=== PATIENT | female | born 1955 | race Caucasian/White ===

== ENCOUNTER 2018-11-01 20:21 | Inpatient (IN) ==
--- NOTE | 2018-11-01 22:42 | Emergency Department Note ---
Disposition Clinical Impression: DVT (deep venous thrombosis) Qualifiers: DVT location: non-extremity vein Chronicity: acute Qualified Code(s): I82.90 - Acute embolism and thrombosis of unspecified vein Cellulitis Qualifiers: Site of cellulitis: extremity Site of cellulitis of extremity: lower extremity Laterality: right Qualified Code(s): L03.115 - Cellulitis of right lower limb Disposition: Admitted As Inpatient Condition: Good Referrals: NONE,PCP [Non-Partnered Physician] - Forms: ED Satisfaction Letter General Adult HPI - General Chief complaint: ED Extremity Problem,Nontraumatic Stated complaint: RLE Pain from [place] [facility] Time Seen by Provider: 11/01/18 21:55 Source: patient Mode of arrival: ambulatory Limitations: no limitations Nursing Notes Reviewed: Yes Vital Signs Reviewed: Yes - History of Present Illness HPI Narrative: History patient with a history of atrial fibrillation and previous DVT, currently on request, presenting to the emergency department for swelling in the right lower extremity. Patient's symptoms significantly worse today. Patient has swelling as well as erythema of the posterior calf. Patient has developed a blister to the anterior martin on the right leg. Patient was seen at urgent care and placed on antibiotics as well as had a salve place. Patient also has erythema to the inner buttocks of the left butt cheek. Patient does not have associated fluctuance with this area. Patient was initially evaluated with DVT study while waiting in triage. DVT scan was positive. Patient states she has been taking her Eliquis on a regular basis. Patient has a warfarin allergy. Pharmacy verified the patient has been filling her prescription on a regular basis. Patient has associated concerns for cellulitis post in the right lower leg as well as the left inner gluteal fold. Patient has mild tachycardia. Patient will be further evaluated with evaluation for underlying kidney function. She will be evaluated for right heart strain with BNP and troponin. X-ray and EKG. Patient will likely be anticoagulated on heparin and require admission. Pain Scale: 5 - Related Data Home Medications Medication Instructions Recorded Confirmed Lisinopril [Zestril] 40 mg PO DAILY 04/20/15 11/01/18 Lovastatin [Mevacor] 40 mg PO HS 04/20/15 11/01/18 Metoprolol [Lopressor] 100 mg PO BID 04/20/15 11/01/18 Apixaban [Eliquis] 5 mg PO BID 01/28/18 11/01/18 Allopurinol [Zyloprim] 300 mg PO DAILY 08/09/18 11/01/18 Ergocalciferol (VITAMIN D2) 50,000 unit PO QWEEK 08/09/18 11/01/18 [Vitamin D2] Furosemide [Lasix] 20 mg PO DAILY 08/09/18 11/01/18 Pioglitazone HCl [Actos] 1 tab PO DAILY 08/09/18 11/01/18 Potassium Chloride [Klor-Con 10] 10 meq PO DAILY 08/09/18 11/01/18 hydrOXYzine HCl [Hydroxyzine HCl] 25 mg PO TID PRN 08/09/18 11/01/18 Doxycycline 100 mg PO BID 11/01/18 11/01/18 Previous Rx's Medication Instructions Recorded TraMADol [Ultram] 50 mg PO Q6HR PRN #15 tablet 04/20/15 Amoxicillin/Clavulanate [Augmentin] 875 mg PO BIDWM #10 tablet 08/14/18 Lactobacillus [Culturelle] 1 each PO BID #10 cap.sprink 08/14/18 levoFLOXacin [Levaquin] 750 mg PO DAILY #5 tablet 08/14/18 Doxycycline 100 mg PO BID 10 Days #20 capsule 11/01/18 Mupirocin [Bactroban Oint] 1 appl TP BID 7 Days #1 tube 11/01/18 Allergies Allergy/AdvReac Type Severity Reaction Status Date / Time Warfarin [From Coumadin] Allergy See Verified 11/01/18 20:30 Comments Review of Systems: As Per HPI Constitutional: Denies: fever, chills ENT ED: Denies: congestion Cardiovascular: Denies: chest pain, palpitations Respiratory: Denies: cough, dyspnea Gastrointestinal: Denies: abdominal pain, nausea, vomiting Musculoskeletal: Denies: back pain Integumentary: Reports: rash, lesions Endocrine: Denies: fatigue Past Medical History - Past Medical History Medical history: Reports: atrial fibrillation, diabetes, hyperlipidemia, hypertension Surgical history: Reports: cancer surgery, hysterectomy, other Psychiatric history: Reports: anxiety - Social History Smoking Status: Never smoker Smokeless Tobacco Status: No Alcohol use: Reports: none Drug use: Reports: none Physical Exam General: Well appearing, nontoxic, no acute distress Head: Normocephalic Atraumatic Eyes: PERRL, EOMI ENT: Airway patent, no stridor Neck: supple, no meningismus Chest: Lungs clear to auscultation bilateral Cardiac: Regular rhythm Abdomen: soft, nontender, nondistended; no guarding, rebound, or tenderness to percussion Musculoskeletal: Right calf swollen compared to left. Cap refill symmetric between both legs. Skin: Erythema throughout the right lower extremity involving mostly the calf pulse the anterior martin which has been associated 3 cm x 1 cm blister that has previously ruptured. Patient with 3 cm x 1 cm lesion to the left buttocks just inside gluteal fold. No fluctuance felt. Does not involve the rectum. Neuro: Alert and Oriented to person, place, and time; No obvious focal deficit. - General General appearance: alert, in no apparent distress Course - Reevaluation(s) Reevaluation #1: [facility]all[facility] Watson [facility] 1955 [id number] 11/01/18 22:30 - Vascular Preliminary by Serena Kelly Acct Num: [id number] : 1955 Patient Age: 63 Venous Duplex Right lower extremity venous duplex appears to be positive for acute DVT in the distal SFV. Positive for acute SVT in the GSV. Initialized on 11/01/18 22:30 - END OF NOTE Reevaluation #2: BNP at baseline. No elevated troponin. Patient complaining of chest pain or shortness of breath. Patient will be started on heparin and admitted for further management. Patient was also given Ancef secondary to concern for associated cellulitis. The case was discussed with the hospitalist. Patient accepted for admission. Vital Signs Temperature 99 F 11/01/18 20:26 Pulse Rate 106 11/01/18 20:26 Respiratory Rate 20 11/01/18 20:26 Blood Pressure 128/84 11/01/18 20:26 O2 Sat by Pulse Oximetry 96 11/01/18 20:26 Temperature 99 F 11/01/18 20:26 Pulse Rate 106 11/01/18 20:26 Respiratory Rate 20 11/01/18 20:26 Blood Pressure 128/84 11/01/18 20:26 O2 Sat by Pulse Oximetry 96 11/01/18 20:26 Oxygen Delivery Oxygen Delivery Room Air Medical Decision Making - Lab Data Result diagrams: 11/01/18 22:53 11/01/18 22:53 Lab Results 11/01/18 11/01/18 11/01/18 Range/Units 22:53 22:53 22:53 WBC 12.9 H (4.3-11.1) K/mcL RBC 4.60 (3.82-4.97) M/mcL Hgb 14.0 (11.5-15.4) g/dL Hct 43.7 (35.3-44.9) % MCV 95.0 (83.0-100.0) fL MCH 30.4 (28.0-33.3) pg MCHC 32.0 (31.6-35.5) g/dL RDW 16.2 H (11.5-14.5) % Plt Count 166 (140-400) K/mcL MPV 10.4 (9.4-12.4) fL Immature Gran % 0.5 (0-4) % Seg Neutrophils % 86.8 % Lymphocytes % 7.2 % Monocytes % 5.0 % Eosinophils % 0.1 % Basophils % 0.4 % Neutrophils # 11.2 H (1.6-8.9) K/mcL Lymphocytes # 0.9 (0.6-4.6) K/mcL Monocytes # 0.7 (0.0-1.3) K/mcL Eosinophils # 0.0 (0.0-0.6) K/mcL Basophils # 0.1 (0.0-0.2) K/mcL PT 13.8 H (9.4-12.1) Seconds INR 1.2 APTT 29.3 (26.0-36.0) Seconds Sodium 132 L (136-145) mEq/L Potassium 4.1 (3.5-5.1) mEq/L Chloride 95 L (98-107) mEq/L Carbon Dioxide 28 (23-29) mEq/L BUN 31 H (8-23) mg/dL Creatinine 1.41 H (0.60-1.20) mg/dL Est GFR ( Amer) 45 L (> 60) Est GFR (Non-Af Amer) 37 L (> 60) BUN/Creatinine Ratio 22 (6-26) Glucose 221 H (70-105) mg/dL Calculated Osmolality 287 (280-300) Lactic Acid (0.5-2.2) mmol/L Calcium 9.6 (8.6-10.3) mg/dL Total Bilirubin 1.5 H (0.3-1.0) mg/dL AST 15 (13-39) Units/L ALT 8 (7-52) Units/L Alkaline Phosphatase 58 (34-104) Units/L Troponin I < 0.03 (< 0.04) ng/mL B-Natriuretic Peptide (Less than 100) pg/mL Serum Total Protein 7.3 (6.4-8.9) g/dL Albumin 3.9 (3.5-5.7) g/dL Globulin 3.4 (2.4-3.5) g/dL Albumin/Globulin Ratio 1.1 (1.1-2.2) 11/01/18 11/01/18 Range/Units 22:53 22:53 WBC (4.3-11.1) K/mcL RBC (3.82-4.97) M/mcL Hgb (11.5-15.4) g/dL Hct (35.3-44.9) % MCV (83.0-100.0) fL MCH (28.0-33.3) pg MCHC (31.6-35.5) g/dL RDW (11.5-14.5) % Plt Count (140-400) K/mcL MPV (9.4-12.4) fL Immature Gran % (0-4) % Seg Neutrophils % % Lymphocytes % % Monocytes % % Eosinophils % % Basophils % % Neutrophils # (1.6-8.9) K/mcL Lymphocytes # (0.6-4.6) K/mcL Monocytes # (0.0-1.3) K/mcL Eosinophils # (0.0-0.6) K/mcL Basophils # (0.0-0.2) K/mcL PT (9.4-12.1) Seconds INR APTT (26.0-36.0) Seconds Sodium (136-145) mEq/L Potassium (3.5-5.1) mEq/L Chloride (98-107) mEq/L Carbon Dioxide (23-29) mEq/L BUN (8-23) mg/dL Creatinine (0.60-1.20) mg/dL Est GFR ( Amer) (> 60) Est GFR (Non-Af Amer) (> 60) BUN/Creatinine Ratio (6-26) Glucose (70-105) mg/dL Calculated Osmolality (280-300) Lactic Acid 1.6 (0.5-2.2) mmol/L Calcium (8.6-10.3) mg/dL Total Bilirubin (0.3-1.0) mg/dL AST (13-39) Units/L ALT (7-52) Units/L Alkaline Phosphatase (34-104) Units/L Troponin I (< 0.04) ng/mL B-Natriuretic Peptide 219 H (Less than 100) pg/mL Serum Total Protein (6.4-8.9) g/dL Albumin (3.5-5.7) g/dL Globulin (2.4-3.5) g/dL Albumin/Globulin Ratio (1.1-2.2)
[2018-11-01 23:10] LABS: Basophils # 0.1 K/mcL (0.0-0.2); Basophils % 0.4 %; Eosinophils % 0.1 %; Hematocrit 43.7 % (35.3-44.9); Immature Granulocytes % 0.5 % (0-4); Lymphocytes # 0.9 K/mcL (0.6-4.6); Lymphocytes % 7.2 %; Mean Corpuscular Hemoglobin 30.4 pg (28.0-33.3); Mean Platelet Volume 10.4 fL (9.4-12.4); Monocytes # 0.7 K/mcL (0.0-1.3); Neutrophils # 11.2 K/mcL (1.6-8.9); Platelet Count 166 K/mcL (140-400); Red Cell Distribution Width 16.2 % (11.5-14.5); Segmented Neutrophils % 86.8 %
[2018-11-01 23:17] LABS: INR 1.2; Prothrombin Time 13.8 Seconds (9.4-12.1)
[2018-11-01 23:20] LABS: Activated Partial Thrombo Time 29.3 Seconds (26.0-36.0)
[2018-11-01 23:33] LABS: Alanine Aminotransferase 8 Units/L (7-52); Albumin 3.9 g/dL (3.5-5.7); Albumin/Globulin Ratio 1.1 (1.1-2.2); Alkaline Phosphatase 58 Units/L (34-104); Aspartate Amino Transferase 15 Units/L (13-39); BUN/Creatinine Ratio 22 (6-26); Bilirubin,Total 1.5 mg/dL (0.3-1.0); Blood Urea Nitrogen 31 mg/dL (8-23); Calcium 9.6 mg/dL (8.6-10.3); Carbon Dioxide 28 mEq/L (23-29); Chloride 95 mEq/L (98-107); Globulin 3.4 g/dL (2.4-3.5); Glucose 221 mg/dL (70-105); Osmolality,Calculated 287 (280-300); Potassium 4.1 mEq/L (3.5-5.1); Sodium 132 mEq/L (136-145); Total Protein 7.3 g/dL (6.4-8.9); Troponin I < 0.03 ng/mL (< 0.04); eGFR For Non-African Americans 37 (> 60)
[2018-11-01] MEDS ORDERED: *HR* Heparin 5,000 UNIT/ML VIAL IVP PRN ×2 (23:52)
[2018-11-01] MEDS ORDERED: *HR* Heparin 5,000 UNIT/ML VIAL IVP ONE (23:52)
[2018-11-01] MEDS ORDERED: ceFAZolin 1,000 MG in Water for inj. (sterile) 20 ML 10 ML IVP STA (23:53)
[2018-11-02] MEDS ORDERED: *HR* OxyCODONE Immed Rel 5 MG TABLET PO STA (02:06)
[2018-11-02] MEDS ORDERED: hydrOXYzine pamoate 25 MG CAPSULE PO PRN (02:15)
[2018-11-02] MEDS ORDERED: *HR* Dextrose 50 % in Water (Syg) 50 ML SYRINGE IVP PRN (02:16)
[2018-11-02] MEDS ORDERED: Dextrose Gel 15 GM/37.5 ML TUBE PO PRN ×2 (02:16)
[2018-11-02] MEDS ORDERED: Naloxone 0.4 MG/ML INJ IVP PRN (02:16)
[2018-11-02] MEDS ORDERED: Insulin DETEMIR 100 UNIT/ML X5UNITS SQ ONE (02:16)
[2018-11-02] MEDS ORDERED: 0.9 % Sodium Chloride 1,000 ML IVC ONE (02:18)
--- NOTE | 2018-11-02 02:39 | Internal Med History&Physical ---
Date of Encounter: 11/02/18 Time of Encounter: 02:37 Internal Medicine - H&P: HPI Chief complaint: leg pain Admitted From: Home Plans for Post Hospital Care: Home History of present illness: Kallie Watson is a morbidly obese 63 year old woman with diabetes, atrial fibrillation and DVT previously on warfarin then dabigatran and now on apixaban. She comes to the ER complaining of pain and swelling in her right leg for the past 2 days and worsening. She also developed a blister on her martin and was placed on antibiotics at urgent care. Her inflammatory signs progressed on the calf area and today in the ER was found to have an acute DVT in the distal SFV and GSV. She is admitted for further care. Past Med Surg Social Fam HX - Past Medical History Medical history: atrial fibrillation, diabetes, hyperlipidemia, hypertension Additional medical history: DVTs Psychiatric history: anxiety - Past Surgical History Surgical History: cancer surgery, hysterectomy, other Additional surgical history: afib ablasion. varicose veins. right breast lump. d&c x 2. tubal - Social History Smoking Status: Never smoker Smokeless Tobacco Status: No Alcohol use: none Drug use: none Internal Medicine - H&P: Meds Lisinopril [Zestril] 40 mg PO DAILY 04/20/15 [History] Lovastatin [Mevacor] 40 mg PO HS 04/20/15 [History] Metoprolol [Lopressor] 100 mg PO BID 04/20/15 [History] TraMADol [Ultram] 50 mg PO Q6HR PRN #15 tablet 04/20/15 [Rx] Apixaban [Eliquis] 5 mg PO BID 01/28/18 [History] Allopurinol [Zyloprim] 300 mg PO DAILY 08/09/18 [History] Ergocalciferol (VITAMIN D2) [Vitamin D2] 50,000 unit PO QWEEK 08/09/18 [History] Furosemide [Lasix] 20 mg PO DAILY 08/09/18 [History] Pioglitazone HCl [Actos] 1 tab PO DAILY 08/09/18 [History] Potassium Chloride [Klor-Con 10] 10 meq PO DAILY 08/09/18 [History] hydrOXYzine HCl [Hydroxyzine HCl] 25 mg PO TID PRN 08/09/18 [History] Amoxicillin/Clavulanate [Augmentin] 875 mg PO BIDWM #10 tablet 08/14/18 [Rx] Lactobacillus [Culturelle] 1 each PO BID #10 cap.sprink 08/14/18 [Rx] levoFLOXacin [Levaquin] 750 mg PO DAILY #5 tablet 08/14/18 [Rx] Doxycycline 100 mg PO BID 11/01/18 [History] Doxycycline 100 mg PO BID 10 Days #20 capsule 11/01/18 [Rx] Mupirocin [Bactroban Oint] 1 appl TP BID 7 Days #1 tube 11/01/18 [Rx] Allergy/AdvReac Type Severity Reaction Status Date / Time Warfarin [From Coumadin] Allergy See Verified 11/01/18 20:30 Comments All Systems PM: A 10-system review of systems was performed and is negative for pertinent findings except as documented above in the HPI. Family history reviewed and found non-contributory. - Constitutional Vitals: Temp Pulse Resp BP Pulse Ox 99 F 106 18 146/85 96 11/01/18 20:26 11/01/18 20:26 11/02/18 02:28 11/02/18 02:28 11/01/18 20:26 Exam: Vitals: Reviewed General: Morbidly obese, unkempt and odorous. Skin: Warm, dry HEENT: Moist mucous membranes. No conjunctivae pallor. Neck: Short and thick. Chest: Normal breath sounds. Clear to auscultation. Heart: Normal S1 & S2; rhythmic. No rubs or murmurs. Abdomen: soft and non-tender to palpation. No peritoneal reaction. Extremities: Equally edematous legs but with the right leg showing more acute inflammatory signs with posterior erythema and warmth that is exquisitely tender to palpation as well as anterior blister formation that is covered with dry dressing. Neurological: Awake, alert and oriented to person, place and time. No focal deficits. Psych: Affect appropriate. Internal Med - H&P Results - Labs CBC & Chem 7: 11/01/18 22:53 11/01/18 22:53 Labs: Short CBC 11/01/18 Range/Units 22:53 WBC 12.9 H (4.3-11.1) K/mcL Hgb 14.0 (11.5-15.4) g/dL Hct 43.7 (35.3-44.9) % Plt Count 166 (140-400) K/mcL Neutrophils # 11.2 H (1.6-8.9) K/mcL BMP 11/01/18 22:53 Sodium 132 L Potassium 4.1 Chloride 95 L Carbon Dioxide 28 BUN 31 H Creatinine 1.41 H Glucose 221 H Calcium 9.6 Cardiac Enzymes 11/01/18 Range/Units 22:53 Troponin I < 0.03 (< 0.04) ng/mL Liver Function 11/01/18 Range/Units 22:53 Total Bilirubin 1.5 H (0.3-1.0) mg/dL AST 15 (13-39) Units/L ALT 8 (7-52) Units/L Alkaline Phosphatase 58 (34-104) Units/L Albumin 3.9 (3.5-5.7) g/dL - Impressions ITS Impressions Chest X-Ray 11/01/18 22:37 IMPRESSION: No acute process. D/ / Maximo Wren MD / Maximo Wren MD Interpreting Provider: Maximo Wren MD - Assessment and Plan (1) DVT (deep venous thrombosis) Current Visit: Yes Status: Acute Assessment and plan: Per her recount, she has suffered multiple episodes of DVT and her switch from different anticoagulants appears to stem from this. It could be considered that given her weight she may be underdosed pharmacokinetically. However her Factor Xa is actually greater than therapeutic so this should not be the cause. We will place her on IV heparin when we repeat her level to ensure they are within the therapeutic range and thereby not risk hemorrhage. She will benefit from hematology consultation for ongoing recommendations upon discharge. Qualifiers: DVT location: non-extremity vein Chronicity: acute Qualified Code(s): I82.90 - Acute embolism and thrombosis of unspecified vein (2) Cellulitis Current Visit: Yes Status: Acute Assessment and plan: It appears that the patient may have developed a secondary cellulitic process ov er her underlying DVT which can be seen in some cases, frequntly in someone like herself who is diabetic and extremely adipose. Will request leg elevation and start vancomycin as blood cultures have been obtained. Cold packs may be applied for comfort and analgesics as needed. Qualifiers: Site of cellulitis: extremity Site of cellulitis of extremity: lower extremity Laterality: right Qualified Code(s): L03.115 - Cellulitis of right lower limb (3) Diabetes mellitus Current Visit: Yes Status: Acute Assessment and plan: Will administer basal insulin tonight and continue with sliding scale regimen while her oral agents will be on hold. Qualifiers: Diabetes mellitus type: type 2 Diabetes mellitus intermediate insulin use: without intermediate use Diabetes mellitus complication status: with unspecified complications Qualified Code(s): E11.8 - Type 2 diabetes mellitus with u nspecified complications (4) Atrial fibrillation Current Visit: Yes Status: Chronic Assessment and plan: Monitor on telemetry. Continue metoprolol. Anticoagulation as above. Qualifiers: Atrial fibrillation type: chronic Qualified Code(s): I48.2 - Chronic atrial fibrillation (5) CKD (chronic kidney disease) stage 3, GFR 30-59 ml/min Current Visit: Yes Status: Chronic Assessment and plan: Stable. Avoid nephrotoxic agents. (6) Gout Current Visit: Yes Status: Chronic Assessment and plan: Asymptomatic. Continue allopurinol. Qualifiers: Gout site: unspecified site Gout etiology: unspecified cause Chronicity: unspecified Qualified Code(s): M10.9 - Gout, unspecified (7) Hypertension Current Visit: Yes Status: Chronic Assessment and plan: Resume oral antihypertensives once reconciled. Qualifiers: Hypertension type: essential hypertension Qualified Code(s): I10 - Essential (primary) hypertension (8) Obesity Current Visit: Yes Status: Acute Assessment and plan: Counseled and educated on therapeutic lifestyle changes for weight loss as it will be of benefit in controlling comorbidities. Power Originator evaluation advised. She will need bariatric evaluation at this point. Qualifiers: Obesity type: due to excess calories Obesity classification: adult class 3 (BMI >= 40) Serious obesity comorbidity presence: with serious comorbidity Body mass index: BMI 50.0-59.9 Qualified Code(s): E66.01 - Morbid (severe) o besity due to excess calories; Z68.43 - Body mass index (BMI) 50-59.9, adult - Time Spent With Patient Total time spent is greater than 50% in coordination of care (as documented) at patient's floor/unit and/or counseling patient: Greater than 35 minutes
[2018-11-02] MEDS: Heparin 25,000 UNIT/250 ML D5W 25,000 UNIT/250 ML IV.SOLN IVC SCH ×2 (07:07→17:22)
[2018-11-02] MEDS: *HR* OxyCODONE Immed Rel 5 MG TABLET PO PRN ×2 (08:05→14:15)
[2018-11-02] MEDS: Metoprolol 100 MG TABLET PO SCH ×2 (08:06→20:11)
[2018-11-02] MEDS: Lisinopril 20 MG TABLET PO SCH (08:06)
[2018-11-02] MEDS: Insulin LISPRO 300 UNITS/3 ML VIAL SQ SCH ×4 (08:09→22:41)
--- NOTE | 2018-11-02 08:41 | Event Note ---
Date of Encounter: 11/02/18 Time of Encounter: 08:24 Patient seen and examined by hospitalist services earlier this am. Currently patient does complain of lower leg pain however controlled with pain medications. She is requesting to eat breakfast. Discussed treatment plan including consulting hematology- physical exam verbalized understanding Physical exam Skin: Free of rash lower extremities are edematous and dusky in color Eyes: Sclera is white. There is no discharge from eyes. ENMT: Oral/pharyngeal mucosa is normal in appearance. There is no discharge from nose or ears. Respiratory: Normal breath sounds with no crackles and wheezes bilaterally. CV: Heart is irregular with no gallop or murmur. GI: Abdomen is flat and soft with no palpable mass or visceromegaly. : There is no tenderness in patient's flanks bilaterally. Neuro exam: He has good strength in upper and lower extremities. He has normal eye movements. Psychiatric: He has normal affect. His thought process is appropriate to the situation.
[2018-11-02] MEDS ORDERED: *HR* Heparin 5,000 UNIT/ML VIAL IVP PRN ×2 (10:58)
[2018-11-02] MEDS ORDERED: Heparin 25,000 UNIT/250 ML D5W 25,000 UNIT/250 ML IV.SOLN IVC SCH ×2 (13:00→13:30)
[2018-11-02] MEDS: Acetaminophen 325 MG TABLET PO PRN (19:59)
[2018-11-02 20:24] LABS: Hematocrit 38.8 % (35.3-44.9); Hemoglobin 12.8 g/dL (11.5-15.4); Mean Corpuscular Hemoglobin 30.6 pg (28.0-33.3); Mean Corpuscular Volume 92.8 fL (83.0-100.0); Mean Platelet Volume 10.4 fL (9.4-12.4); Platelet Count 153 K/mcL (140-400); Red Blood Count 4.18 M/mcL (3.82-4.97); Red Cell Distribution Width 16.5 % (11.5-14.5)
[2018-11-02 20:44] LABS: Calcium 9.1 mg/dL (8.6-10.3); Potassium 4.3 mEq/L (3.5-5.1)
[2018-11-03] MEDS: Heparin 25,000 UNIT/250 ML D5W 25,000 UNIT/250 ML IV.SOLN IVC SCH ×2 (00:37→14:09)
[2018-11-03 03:14] LABS: Basophils % 0.2 %; Hematocrit 39.2 % (35.3-44.9); Hemoglobin 12.2 g/dL (11.5-15.4); Immature Granulocytes % 0.6 % (0-4); Lymphocytes # 1.2 K/mcL (0.6-4.6); Mean Corpuscular HGB Conc 31.1 g/dL (31.6-35.5); Mean Corpuscular Hemoglobin 30.1 pg (28.0-33.3); Mean Corpuscular Volume 96.8 fL (83.0-100.0); Mean Platelet Volume 10.7 fL (9.4-12.4); Monocytes # 0.8 K/mcL (0.0-1.3); Monocytes % 5.1 %; Neutrophils # 13.3 K/mcL (1.6-8.9); Platelet Count 146 K/mcL (140-400); Red Blood Count 4.05 M/mcL (3.82-4.97); Red Cell Distribution Width 16.2 % (11.5-14.5); Segmented Neutrophils % 86.1 %
[2018-11-03 03:20] LABS: Calcium 9.4 mg/dL (8.6-10.3); Potassium 3.8 mEq/L (3.5-5.1)
[2018-11-03 03:36] LABS: Activated Partial Thrombo Time 128.1 Seconds (26.0-36.0)
[2018-11-03 03:46] LABS: Heparin anti-factor XA UFH 1.28 IU/mL (0.30-0.70)
--- NOTE | 2018-11-03 06:54 | Event Note ---
Date of Encounter: 11/02/18 Time of Encounter: 19:47 Alerted by pts. nurse ANA LUISA Oliveros that the pts. HR was increasing to 120s and 130s and sustaining. Pt. has hx of Afib. Pt. meeting sepsis criteria so lactic acid ordered as well. EKG showed Afib w/RVR. Nurse instructed to get 2nd IV access d/t pt. being on heparin gtt. 2nd IV access gained and Cardizem gtt ordered to start at 2.5 mg and titrate up per protocol while monitoring pts. BP closely. Pts. BP 100/50 manually. VS at 23:03: 98.3F temp, HR 1:15, RR 18, BP 117/73, SPO2 99% on 2 L. Gtt started and pts. nurse instructed to continue monitoring pt. very closely and alert me immediately of any adverse changes.
[2018-11-03] MEDS: Insulin LISPRO 300 UNITS/3 ML VIAL SQ SCH ×4 (07:38→20:19)
[2018-11-03] MEDS: Metoprolol 100 MG TABLET PO SCH ×2 (08:21→20:24)
[2018-11-03] MEDS: Lisinopril 20 MG TABLET PO SCH (08:21)
[2018-11-03] MEDS: traMADol 50 MG TABLET PO PRN (08:21)
[2018-11-03] MEDS ORDERED: Furosemide 20 MG TABLET PO SCH (09:00)
--- NOTE | 2018-11-03 10:06 | Internal Med Progress Note ---
Hospitalist Progress Note - Encounter Date of Encounter: 11/03/18 Time of Encounter: 10:00 - Subjective Interval History: Patient was seen and examined at bedside. Currently states she feels much better leg is less painful. She did have an episode of A. fib RVR overnight which I did review with the patient currently on Cardizem at 10 rate is improving. Also on heparin which we will continue due to DVT. Discussed treatment plan with the patient who verbalized understanding - Exam Vitals: Temp Pulse Resp BP Pulse Ox 100.3 F H 132 18 121/78 95 11/03/18 07:34 11/03/18 07:34 11/03/18 07:34 11/03/18 07:34 11/03/18 08:20 Exam: Vitals: Reviewed General: Morbidly obese, unkempt and odorous. Skin: Warm, dry HEENT: Moist mucous membranes. No conjunctivae pallor. Neck: Short and thick. Chest: Normal breath sounds. Clear to auscultation. Heart: Normal S1 & S2; rhythmic. No rubs or murmurs. Abdomen: soft and non-tender to palpation. No peritoneal reaction. Extremities: Equally edematous legs but with the right leg showing more acute inflammatory signs with posterior erythema and warmth that is exquisitely tender to palpation as well as anterior blister formation that is covered with some serous sanguinous drainage Neurological: Awake, alert and oriented to person, place and time. No focal deficits. Psych: Affect appropriate. - Assessment and Plan (1) Gout Current Visit: Yes Status: Chronic Assessment and Plan: Asymptomatic. Continue allopurinol. (2) CKD (chronic kidney disease) stage 3, GFR 30-59 ml/min Current Visit: Yes Status: Chronic Assessment and Plan: Stable. Avoid nephrotoxic agents. Monitor creatinine closely (3) Atrial fibrillation Current Visit: Yes Status: Chronic Assessment and Plan: Monitor on telemetry. Continue metoprolol. Anticoagulation as above. Patient did have episode of A. fib RVR overnight initiated on Cardizem drip-rate currently around 100 (4) Hypertension Current Visit: Yes Status: Chronic Assessment and Plan: Continued home medications-currently patient is on Cardizem drip monitor blood pressure closely (5) Diabetes mellitus Current Visit: Yes Status: Acute Assessment and Plan: Will administer basal insulin and continue with sliding scale regimen while her oral agents will be on hold.-Glucose is stable at this time (6) DVT (deep venous thrombosis) Current Visit: Yes Status: Acute Assessment and Plan: Patient is morbidly obese has had multiple episodes of DVTs and been placed on 3 different anticoagulants. Currently venous duplex does show right superficial femoral vein acute thrombus right great saphenous vein acute thrombus-right leg is edematous with erythema and tenderness to touch. She has been initiated on heparin drip hematology has been consulted for ongoing recommendations upon discharge (7) Cellulitis Current Visit: Yes Status: Acute Assessment and Plan: Right lower leg continues to be edematous with erythema tender to touch. She does have one open wound which is draining. She did have a fever overnight blood cultures are negative to date. White count is stable at this time co ntinue with vancomycin-we will attempt to obtain wound culture Encourage patient to elevate leg cold packs as needed continue with current analgesia (8) Obesity Current Visit: Yes Status: Acute Assessment and Plan: Counseled and educated on therapeutic lifestyle changes for weight loss as it will be of benefit in controlling comorbidities. She will need bariatric evaluation at this point. (9) Atrial fibrillation with RVR Current Visit: Yes Status: Acute Assessment and Plan: Patient had an episode of A. fib RVR overnight with heart rates of 140s 150s. Patient on Cardizem drip which we will continue currently rate 100. Continue with metoprolol Currently on heparin drip which we will continue - Time Spent with Patient Total time spent is greater than 50% in coordination of care (as documented) at patient's floor/unit and/or counseling patient: Internal Medicine: Result - Labs CBC & Chem 7: 11/03/18 02:43 11/03/18 02:43 Labs: Short CBC 11/02/18 11/03/18 Range/Units 20:12 02:43 WBC 16.4 H 15.4 H (4.3-11.1) K/mcL Hgb 12.8 12.2 (11.5-15.4) g/dL Hct 38.8 39.2 (35.3-44.9) % Plt Count 153 146 (140-400) K/mcL Neutrophils # 13.3 H (1.6-8.9) K/mcL BMP 11/02/18 11/03/18 20:12 02:43 Sodium 128 L 130 L Potassium 4.3 3.8 Chloride 93 L 95 L Carbon Dioxide 25 25 BUN 29 H 29 H Creatinine 1.49 H 1.44 H Glucose 221 H 182 H Calcium 9.1 9.4 - ABG Interpretation ABG results: PT/INR, D-dimer PT 13.8 Seconds (9.4-12.1) H 11/01/18 22:53 Consult Discharge Plan - Plan Referrals: Rachel Veronica MD [Primary Care Provider] - (Follow up has been requested) (1) Gout Qualifiers: Gout site: unspecified site Gout etiology: unspecified cause Chronicity: unspecified Qualified Code(s): M10.9 - Gout, unspecified (3) Atrial fibrillation Qualifiers: Atrial fibrillation type: chronic Qualified Code(s): I48.2 - Chronic atrial fibrillation (4) Hypertension Qualifiers: Hypertension type: essential hypertension Qualified Code(s): I10 - Essential (primary) hypertension (5) Diabetes mellitus Qualifiers: Diabetes mellitus type: type 2 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 terminal operator insulin use: without computer terminal operator use Diabetes mellitus complication status: with unspecified complications Qualified Code(s): E11.8 - Type 2 diabetes mellitus with unspecified complications (6) DVT (deep venous thrombosis) Qualifiers: DVT location: non-extremity vein Chronicity: acute Qualified Code(s): I82.90 - Acute embolism and thrombosis of unspecified vein (7) Cellulitis Qualifiers: Site of cellulitis: extremity Site of cellulitis of extremity: lower extremity Laterality: right Qualified Code(s): L03.115 - Cellulitis of right lower limb (8) Obesity Qualifiers: Obesity type: due to excess calories Obesity classification: adult class 3 (BMI >= 40) Serious obesity comorbidity presence: with serious comorbidity Body mass index: BMI 50.0-59.9 Qualified Code(s): E66.01 - Morbid (severe) obesity due to excess calories; Z68.43 - Body mass index (BMI) 50-59.9, adult
[2018-11-03] MEDS ORDERED: Vancomycin 1 EACH in 0.9 % Sodium Chloride 250 ML IVPB SCH (14:15)
--- NOTE | 2018-11-03 18:37 | Oncology Inp Consult Note ---
Date of Encounter: 11/03/18 Time of Encounter: 18:36 Assessment and Plan (1) DVT (deep venous thrombosis) Status: Acute Assessment and plan: Acute right lower extremity DVT diagnosed by Doppler 11/01/2018. She was on Elequis 5 mg twice a day minute happen Her risk factors for DVT include medically significant obesity. She was tolerating Pradaxa for about 6 years in the past without much problems. She did not fail Pradaxa Had a long discussion with her. She does not like Coumadin if it causes her bleeding. At this time we will switch her back to Pradaxa 150 mg by mouth twice a day after about 5 days of heparin. If her creatinine clearance anthony to drop below 30 may have to dose reduce Medically significant obesity which is also contributing to DVT. Weight reduction would help Type 2 diabetes mellitus needs better control. 2. Chronic atrial fibrillation. Pradaxa should be helpful for this as well Qualifiers: DVT location: non-extremity vein Chronicity: acute Qualified Code(s): I82.90 - Acute embolism and thrombosis of unspecified vein - Data of Consult Patient: new to practice Requesting Physician: Enrike Alcantar MD Primary Care Provider: Rachel Veronica - Consult Narrative Reason for consult: Acute right lower extremity DVT History of present illness: Hospitalized with right leg swelling and pain for 2 days prior to admission. Venous Doppler 11/01/2018 showed acute right superficial femoral vein DVT. Also right greatest saphenous vein SVT noted. Left side Doppler unremarkable She also has history of atrial fibrillation She was on warfarin diabetes In the past and Failed. She Was on Apixaban Prior to This Admission Since Admission She Is on Heparin and Her Symptoms Have Improved Greatly Her Risk Factors for DVT Include Medically Significant Obesity with BMI 58 She has chronic kidney disease stage III creatinine around 1.4 with creatinine clearance around 40. Hematological history She had history of DVT for several years She was on Coumadin for few years. Subsequently she developed uterine bleeding. She has to have a hysterectomy in 2010 and is diagnosed to have a uterine cancer Since then she was switched to Pradaxa 150 mg by mouth twice a day which she was tolerating it well. Around September 2016 she was switched to Eliquis 5 mg twice a day as it may be a better drug She claims she has been taking Eliquis regularly up until this admission. Past Med Surg Social Fam HX - Past Medical History Medical history: atrial fibrillation, diabetes, hyperlipidemia, hypertension Additional medical history: DVTs Psychiatric history: anxiety - Past Surgical History Surgical History: cancer surgery, hysterectomy, other Additional surgical history: afib ablasion. varicose veins. right breast lump. d&c x 2. tubal - Social History Smoking Status: Never smoker Smokeless Tobacco Status: No Alcohol use: none Drug use: none - Family History Father Hx Family Cardiac Disorders: Yes (heart disease) Hx Family Cancer: Yes Mother Hx Family Cardiac Disorders: Yes (PACEMAKER) Hx Family Cancer: Yes (throat) Medications and Allergies RX: Lisinopril [Zestril] 40 mg PO DAILY 04/20/15 [History] RX: Lovastatin [Mevacor] 40 mg PO HS 04/20/15 [History] RX: Metoprolol [Lopressor] 100 mg PO BID 04/20/15 [History] RX: TraMADol [Ultram] 50 mg PO Q6HR PRN #15 tablet 04/20/15 [Rx] RX: Apixaban [Eliquis] 5 mg PO BID 01/28/18 [History] RX: Allopurinol [Zyloprim] 300 mg PO DAILY 08/09/18 [History] RX: Ergocalciferol (VITAMIN D2) [Vitamin D2] 50,000 unit PO QWEEK 08/09/18 [ History] RX: Furosemide [Lasix] 20 mg PO DAILY 08/09/18 [History] RX: Pioglitazone HCl [Actos] 1 tab PO DAILY 08/09/18 [History] RX: Potassium Chloride [Klor-Con 10] 10 meq PO DAILY 08/09/18 [History] RX: hydrOXYzine HCl [Hydroxyzine HCl] 25 mg PO TID PRN 08/09/18 [History] Amoxicillin/Clavulanate [Augmentin] 875 mg PO BIDWM #10 tablet 08/14/18 [Rx] RX: Lactobacillus [Culturelle] 1 each PO BID #10 cap.sprink 08/14/18 [Rx] levoFLOXacin [Levaquin] 750 mg PO DAILY #5 tablet 08/14/18 [Rx] RX: Doxycycline 100 mg PO BID 11/01/18 [History] RX: Doxycycline 100 mg PO BID 10 Days #20 capsule 11/01/18 [Rx] RX: Mupirocin [Bactroban Oint] 1 appl TP BID 7 Days #1 tube 11/01/18 [Rx] Allergy/AdvReac Type Severity Reaction Status Date / Time Warfarin [From Coumadin] Allergy See Verified 11/01/18 20:30 Comments Review of systems: Activity level is limited. No nausea vomiting. No chest pain. Shortness of breath with exertion. Has significant ecchymosis especially right forearm probably from peripheral vein access. No headache. No focal neurological deficit but deconditioning. No visual problems. Right leg pain has improved Oncology - Exam - Constitutional Exam: GENERAL: Alert and oriented, fatigued. Medically significant obesity Mental Status: Affect appropriate for circumstances HEENT: Sclerae anicteric. No mucositis or thrush. No other oral or pharyngeal lesions or erythema. Skin: No rashes or petechiae. No evidence of skin malignancy Lymph nodes: No cervical, supraclavicular, axillary, or inguinal adenopathy. Lungs: Air entry normal with normal breath sounds. No rhonchi or wheezing Cardiovascular: Regular rate and rhythm. No skipped beats Abdomen: Soft, nontender; no organomegaly or masses palpable. Extremities: Bilateral lower extremity edema some of them are chronic about 1- 2+ Neurologic: Alert, cranial nerves II-XII intact; she has generalized deconditioning Consult Discharge Plan - Plan Referrals: Rachel Veronica MD [Primary Care Provider] - (Follow up has been requested) Inpatient Charges Provider: Dr. Brenda Graff Consult - Inpatient: [id number]
[2018-11-03] MEDS: Acetaminophen 325 MG TABLET PO PRN (20:19)
[2018-11-04 01:36] LABS: Basophils % 0.3 %; Eosinophils # 0.1 K/mcL (0.0-0.6); Hematocrit 34.1 % (35.3-44.9); Hemoglobin 11.2 g/dL (11.5-15.4); Immature Granulocytes % 0.8 % (0-4); Lymphocytes # 1.6 K/mcL (0.6-4.6); Lymphocytes % 12.6 %; Mean Corpuscular HGB Conc 32.8 g/dL (31.6-35.5); Mean Corpuscular Hemoglobin 30.3 pg (28.0-33.3); Mean Corpuscular Volume 92.2 fL (83.0-100.0); Mean Platelet Volume 10.9 fL (9.4-12.4); Monocytes # 0.9 K/mcL (0.0-1.3); Monocytes % 7.2 %; Neutrophils # 9.7 K/mcL (1.6-8.9); Platelet Count 140 K/mcL (140-400); Red Cell Distribution Width 16.4 % (11.5-14.5); Segmented Neutrophils % 78.1 %
[2018-11-04 01:52] LABS: Calcium 8.7 mg/dL (8.6-10.3); Potassium 3.8 mEq/L (3.5-5.1)
[2018-11-04] MEDS: Heparin 25,000 UNIT/250 ML D5W 25,000 UNIT/250 ML IV.SOLN IVC SCH ×3 (03:40→20:44)
[2018-11-04] MEDS ORDERED: Aminoglycoside Consult 1 EACH MC ONE (07:28)
--- NOTE | 2018-11-04 09:05 | Internal Med Progress Note ---
Hospitalist Progress Note - Encounter Date of Encounter: 11/04/18 Time of Encounter: 09:04 - Subjective Interval History: patient seen and examined SHe plans of lower leg pain-right leg is red and edematous - Exam Vitals: Temp Pulse Resp BP Pulse Ox 99.5 F 110 17 113/67 96 11/04/18 06:42 11/04/18 06:42 11/04/18 06:42 11/04/18 06:42 11/04/18 06:42 Exam: Vitals: Reviewed General: Morbidly obese, unkempt and odorous. Skin: Warm, dry HEENT: Moist mucous membranes. No conjunctivae pallor. Neck: Short and thick. Chest: Normal breath sounds. Clear to auscultation. Heart: Normal S1 & S2; rhythmic. No rubs or murmurs. Abdomen: soft and non-tender to palpation. No peritoneal reaction. Extremities: Equally edematous legs but with the right leg showing more acute inflammatory signs with posterior erythema and warmth that is exquisitely tender to palpation as well as anterior blister formation that is covered with some serous sanguinous drainage Neurological: Awake, alert and oriented to person, place and time. No focal deficits. Psych: Affect appropriate. - Assessment and Plan (1) Gout Current Visit: Yes Status: Chronic Assessment and Plan: Asymptomatic. Continue allopurinol. (2) CKD (chronic kidney disease) stage 3, GFR 30-59 ml/min Current Visit: Yes Status: Chronic Assessment and Plan: Stable. Avoid nephrotoxic agents. Monitor creatinine closely (3) Atrial fibrillation Current Visit: Yes Status: Chronic Assessment and Plan: Monitor on telemetry. Continue metoprolol. Anticoagulation as above. -Initiated on oral Cardizem Cardiology consult and appreciate recommendations Continue anticoagulation Cardiac echo has been ordered (4) Hypertension Current Visit: Yes Status: Chronic Assessment and Plan: Lopressor is a little soft we will hold lisinopril patient initiated on oral C ardizem-Cardizem drip has been discontinue continue with metoprolol (5) Diabetes mellitus Current Visit: Yes Status: Acute Assessment and Plan: Will administer basal insulin and continue with sliding scale regimen while her oral agents will be on hold.-Glucose is stable at this time (6) DVT (deep venous thrombosis) Current Visit: Yes Status: Acute Assessment and Plan: Patient is morbidly obese has had multiple episodes of DVTs and been placed on 3 different anticoagulants. Currently venous duplex does show right superficial femoral vein acute thrombus right great saphenous vein acute thrombus-right leg is edematous with erythema and tenderness to touch. She has been initiated on heparin drip hematology has been consulted recommending her to ask 150 mg twice a day upon discharge (7) Cellulitis Current Visit: Yes Status: Acute Assessment and Plan: Right lower leg continues to be edematous with erythema tender to touch. She does have one open wound which is draining. She did have a fever overnight blood cultures are negative to date. White count is stable at this time continue with vancomycin-we will attempt to obtain wound culture-preliminary wound culture does show gram-negative rods-presumptively Pseudomonas-will initiate on cefepime Encourage patient to elevate leg cold packs as needed continue with current analgesia (8) Obesity Current Visit: Yes Status: Acute Assessment and Plan: Counseled and educated on therapeutic lifestyle changes for weight loss as it will be of benefit in controlling comorbidities. She will need bariatric evaluation at this point. (9) Atrial fibrillation with RVR Current Visit: Yes Status: Acute Assessment and Plan: Patient had an episode of A. fib RVR placed on Cardizem drip and has been converted to oral Cardizem 60 mg every 8 hours. Evaluated by cardiology recommending cardiac Cardizem CD 180 mg daily Continue with metoprolol Currently on heparin drip which we will continue - Time Spent with Patient Total time spent is greater than 50% in coordination of care (as documented) at patient's floor/unit and/or counseling patient: Internal Medicine: Result - Labs CBC & Chem 7: 11/04/18 01:07 11/04/18 01:07 Labs: Short CBC 11/04/18 Range/Units 01:07 WBC 12.5 H (4.3-11.1) K/mcL Hgb 11.2 L (11.5-15.4) g/dL Hct 34.1 L (35.3-44.9) % Plt Count 140 (140-400) K/mcL Neutrophils # 9.7 H (1.6-8.9) K/mcL BMP 11/04/18 01:07 Sodium 129 L Potassium 3.8 Chloride 96 L Carbon Dioxide 27 BUN 30 H Creatinine 1.48 H Glucose 160 H Calcium 8.7 - ABG Interpretation ABG results: PT/INR, D-dimer PT 13.8 Seconds (9.4-12.1) H 11/01/18 22:53 D-Dimer 429 ng/mLFEU (0-500) 11/04/18 01:07 Consult Discharge Plan - Plan Referrals: Rachel Veronica MD [Primary Care Provider] - 11/12/18 10:00 am () (1) Gout Qualifiers: Gout site: unspecified site Gout etiology: unspecified cause Chronicity: unspecified Qualified Code(s): M10.9 - Gout, unspecified (3) Atrial fibrillation Qualifiers: Atrial fibrillation type: persistent Qualified Code(s): I48.1 - Persistent atrial fibrillation (4) Hypertension Qualifiers: Hypertension type: essential hypertension Qualified Code(s): I10 - Essential (primary) hypertension (5) Diabetes mellitus Qualifiers: Diabetes mellitus type: type 2 Diabetes mellitus half-way insulin use: without intermediate project manager use Diabetes mellitus complication status: with unspecified complications Qualified Code(s): E11.8 - Type 2 diabetes mellitus with unspecified complications (6) DVT (deep venous thrombosis) Qualifiers: DVT location: lower extremity Affected thrombotic vein of extremity: femoral Chronicity: acute Laterality: right Qualified Code(s): I82.411 - Acute embolism and thrombosis of right femoral vein (7) Cellulitis Qualifiers: Site of cellulitis: extremity Site of cellulitis of extremity: lower extremity Laterality: right Qualified Code(s): L03.115 - Cellulitis of right lower limb (8) Obesity Qualifiers: Obesity type: due to excess calories Obesity classification: adult class 3 (BMI >= 40) Serious obesity comorbidity presence: with serious comorbidity Body mass index: BMI 50.0-59.9 Qualified Code(s): E66.01 - Morbid (severe) obesity due to excess calories; Z68.43 - Body mass index (BMI) 50-59.9, adult
[2018-11-04] MEDS: Insulin LISPRO 300 UNITS/3 ML VIAL SQ SCH ×4 (09:51→21:19)
--- NOTE | 2018-11-04 09:53 | Electrocardiograph Report ---
[place] [id number] Test Date: 2018-11-02 Pat Name: Kallie Watson Department: 113 Room: 3B23 Gender: F Sap Hana Architect: : [id number] Requested By: Tyrell Bean Order Number: [id number] Reading MD: Maximo Dubois Measurements Intervals [place] Rate: 134 P: [place]: 0 QRS: 10 QRSD: 91 T: 256 QT: 240 QTc: 319 Interpretive Statements ATRIAL FIBRILLATION WITH RAPID VENTRICULAR RESPONSE WITH ABERRANT CONDUCTION OR VENTRICULAR PREMATURE COMPLEXES NONSPECIFIC ST & T-WAVE ABNORMALITY Electronically Signed On 11-04-2018 9:51:28 EDT by Maximo Dubois
[2018-11-04] MEDS: *HR* OxyCODONE Immed Rel 5 MG TABLET PO PRN ×2 (09:57→16:50)
[2018-11-04] MEDS: dilTIAZem HCl 60 MG TABLET PO SCH ×3 (09:59→23:41)
[2018-11-04] MEDS: 0.9 % Sodium Chloride 1,000 ML IVC SCH ×2 (09:59→20:43)
[2018-11-04] MEDS: Lisinopril 20 MG TABLET PO SCH (10:00)
[2018-11-04] MEDS: Metoprolol 100 MG TABLET PO SCH ×2 (10:00→20:42)
--- NOTE | 2018-11-04 12:28 | Cardiology Consult Note ---
<Shaina Moreno - Last Filed: 11/04/18 12:30> Date of Encounter: 11/04/18 Time of Encounter: 11:30 Assessment and Plan (1) DVT (deep venous thrombosis) Current Visit: Yes Status: Acute Per cardiology: -ADmitted with acute DVT. -Managment per primary service. Qualifiers: DVT location: lower extremity Affected thrombotic vein of extremity: femoral Chronicity: acute Laterality: right Qualified Code(s): I82.411 - Acute embolism and thrombosis of right femoral vein (2) Atrial fibrillation Current Visit: Yes Status: Chronic Per cardiology: -Known history of a.fib, s/p previous ablation. -Now a.fib RVR in the setting of DVT, cellulitis, febrile illness. -On lopressor 100mg BID and cardizem 60mg Q8 hours. -BP marginal. -Was on Eliquis at home for anticoagulation, however developed DVT. Currently on heparin drip, plan for pradaxa at discharge per hematology note. -Average HR previous 12 hours noted to be 101, a.fib. Currently 80s at bedside. Off cardizem drip now. -Will switch cardizem short acting to CD tomorrow. 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 -Anticipate cardiology sign off once seen and evaluated by . Qualifiers: Atrial fibrillation type: persistent Qualified Code(s): I48.1 - Persistent atrial fibrillation Discussion w patient/family: The assessment and plan as outlined above was discussed with the patient and/or family members who expressed understanding and agreement. All questions were answered. Thank you for involving us in the care of your patient. Please call with any questions. Discussed and reviewed with . History of Present Illness Consult date: 11/04/18 Requesting physician: Malgorzata Gurrola Consult reason: a.fib rvr Chief complaint: leg pain History of present illness: Ms. Watson is a 63 year old female with a relevant past medical history of a.fib s/p previous ablation, DM, CKD, HTN, HLD, uterine cancer, osteoarthritis, obesity, DVT, who presented to [facility] with right leg pain. Patient has DVT. Cardiology consulted for a.fib RVR. Patient is asymptomatic. Denies palpitations, fluttering. Denies increased shortness of breath. Only complaint is right leg pain. Past Med Surg Social Fam HX - Past Medical History Attestation: Yes The following information was validated with the patient. Source: patient, old records reviewed Medical history: atrial fibrillation, diabetes, hyperlipidemia, hypertension Additional medical history: DVTs Psychiatric history: anxiety - Past Surgical History Surgical History: cancer surgery, hysterectomy, other Additional surgical history: afib ablasion. varicose veins. right breast lump. d&c x 2. tubal - Social History Smoking Status: Never smoker Smokeless Tobacco Status: No Alcohol use: none Drug use: none - Family History Mother Hx Family Cardiac Disorders: Yes (PACEMAKER) Hx Family Cancer: Yes (throat) Father Hx Family Cardiac Disorders: Yes (heart disease) Hx Family Cancer: Yes Medications and Allergies Lovastatin [Mevacor] 40 mg PO HS 04/20/15 [History] Apixaban [Eliquis] 5 mg PO BID 01/28/18 [History] Allopurinol [Zyloprim] 300 mg PO DAILY 08/09/18 [History] Ergocalciferol (VITAMIN D2) [Vitamin D2] 50,000 unit PO TH 08/09/18 [History] hydrOXYzine HCl [Hydroxyzine HCl] 25 mg PO BID PRN 08/09/18 [History] Doxycycline 100 mg PO BID 10 Days #20 capsule 11/01/18 [Rx] Mupirocin [Bactroban Oint] 1 appl TP BID 7 Days #1 tube 11/01/18 [Rx] Furosemide [Lasix] 40 mg PO DAILY 11/04/18 [History] Lisinopril [Zestril] 40 mg PO DAILY 11/04/18 [History] Metoprolol Tartrate 100 mg PO BID 11/04/18 [History] Potassium Chloride 20 meq PO DAILY 11/04/18 [History] Tramadol HCl [Ultram] 50 mg PO Q4H PRN 11/04/18 [History] glipiZIDE [Glipizide] 10 mg PO BID 11/04/18 [History] Allergy/AdvReac Type Severity Reaction Status Date / Time Warfarin [From Coumadin] Allergy Hives Verified 11/04/18 09:33 All Systems Review: The remainder of the systems were reviewed and are negative - Cardiovascular Cardiovascular: as per HPI Physical Examination Vital Signs, Last 4 Hours Temp Pulse Resp BP Pulse Ox 11/04/18 11:44 98.6 F 84 16 91/57 94 General: Conversant, No Apparent Distress HEENT: Atraumatic, Normocephaly, Mucus Membranes Moist Neck: No JVD, Normal carotid pulses Cardiac: Normal S1 and S2, No Murmur, Other (Irregularly irregular) Lungs: Normal Breath Sounds, No Wheeze, Rales, Rhonchi Neuro: Alert and responsive, No focal deficits noted Abdomen: Soft, Non-Tender Skin: No rashes noted on visualized skin, Other (Bilateral lower extremitied with red, dry, flaky skin. Bandage noted to right leg. ) Musculoskeletal: No Chest Wall Tenderness Extremities: No Clubbing, No Cyanosis, No Edema, Normal Pulses Results 11/04/18 01:07 11/04/18 01:07 Lab Results Active Medications Acetaminophen (Tylenol) 650 mg PO Q6HR PRN PRN Reason: Mild Pain/Fever Stop: 05/04/19 02:17 Last Admin: 11/03/18 20:19 Dose: 650 mg Allopurinol (Zyloprim) 300 mg PO DAILY JOSEPH Stop: 05/04/19 09:01 Last Admin: 11/04/18 10:00 Dose: 300 mg Dextrose/Water (Dextrose 50% (Syg)) 25 ml IVP AD PRN PRN Reason: Hypoglycemia Stop: 05/04/19 02:17 Diltiazem HCl (Cardizem) 60 mg PO Q8HR JOSEPH Stop: 05/06/19 09:16 Last Admin: 11/04/18 09:59 Dose: 60 mg Glucose (Gluctose) 15 gm PO ONCE PRN PRN Reason: Hypoglycemia Stop: 05/04/19 02:17 Glucose (Gluctose) 30 gm PO ONCE PRN PRN Reason: Hypoglycemia Stop: 05/04/19 02:17 Heparin Sodium (Porcine) (Heparin) 9,000 unit IVP Q6HR PRN PRN Reason: SEE COMMENTS Stop: 05/04/19 10:59 Heparin Sodium (Porcine) (Heparin) 4,500 unit IVP Q6H PRN PRN Reason: SEE COMMENTS Stop: 05/04/19 10:59 Hydroxyzine Pamoate (Hydroxyzine Pamoate) 25 mg PO TID PRN PRN Reason: Anxiety Diltiazem HCl 50 mg/ Sodium (Chloride) 50 mls @ 2.5 mls/hr IVC .Q20H JOSEPH; Protocol Stop: 05/04/19 21:16 Last Admin: 11/03/18 22:10 Dose: 10 mg/hr, 10 mls/hr Heparin Sodium/Dextrose (Heparin 25,000 Unit/250 Ml D5w) 25,000 unit in 250 mls @ 23.1 mls/hr IVC .[id number] OJSEPH; Protocol Stop: 05/04/19 23:46 Last Admin: 11/04/18 03:40 Dose: 11 unit/kg/hr, 18.2 mls/hr Sodium Chloride (0.9 % Sodium Chloride) 1,000 mls @ 100 mls/hr IVC .Q10H JOSEPH Stop: 11/05/18 03:14 Last Admin: 11/04/18 09:59 Dose: 100 mls/hr Vancomycin HCl 1,000 mg/ (Sodium Chloride) 250 mls @ 167 mls/hr IVPB Q12H JOSEPH; Protocol Stop: 05/06/19 11:01 Last Admin: 11/04/18 11:56 Dose: 167 mls/hr Insulin Human Lispro (Humalog) 0 units SQ HS [facility]; Protocol Stop: 05/04/19 21:01 Last Admin: 11/03/18 20:19 Dose: Not Given Insulin Human Lispro (Humalog) 0 units SQ TIDAC [facility]; Protocol Stop: 05/04/19 07:31 Last Admin: 11/04/18 11:53 Dose: Not Given Lisinopril (Zestril) 40 mg PO DAILY [facility]; Protocol Stop: 05/04/19 09:01 Last Admin: 11/04/18 10:00 Dose: 40 mg Lovastatin (Mevacor) 40 mg PO HS [facility] Stop: 05/04/19 21:01 Last Admin: 11/03/18 20:19 Dose: 40 mg Metoprolol Tartrate (Lopressor) 100 mg PO BID [facility] Stop: 05/04/19 09:01 Last Admin: 11/04/18 10:00 Dose: 100 mg Naloxone HCl (Narcan) 0.4 mg IVP Q2M PRN PRN Reason: SEE COMMENTS Stop: 05/04/19 02:17 Oxycodone HCl (Roxicodone) 10 mg PO Q6H PRN PRN Reason: Severe Pain Stop: 05/04/19 02:17 Last Admin: 11/04/18 09:57 Dose: 10 mg Potassium Chloride (Potassium Chloride) 10 meq PO DAILY JOSEPH Stop: 05/04/19 09:01 Last Admin: 11/04/18 10:00 Dose: 10 meq Tramadol HCl (Ultram) 50 mg PO Q6H PRN PRN Reason: Pain Stop: 05/04/19 02:16 Last Admin: 11/03/18 08:21 Dose: 50 mg Laboratory Tests 07/30/18 11/01/18 11/04/18 07:46 22:53 01:07 WBC 12.5 H Hgb 11.2 L Creatinine Troponin I < 0.03 TSH 1.913 11/04/18 01:07 WBC Hgb Creatinine 1.48 H Troponin I TSH - Imaging and Cardiology Chest Xray: report reviewed Echo: pending - EKG Interpretation EKG results cardiology: personally reviewed (ECG with a.fib RVR, HR 134. PVC noted.), other (Telemetry reviewed with average HR previous 12 hours noted to be 101, a.fib. PVCs noted.) Consult Discharge Plan - Plan Referrals: Rachel Veronica MD [Primary Care Provider] - 11/12/18 10:00 am () <Kelby Zhao - Last Filed: 11/04/18 17:09> Date of Encounter: 11/04/18 - Attending Attestation Patient was seen and evaluated independently by me. Findings, assessment and plan were discussed at length with patient, questions answered. Agree with nurse practitioner's/resident's documentation. Addition as follows, 63yoF ho Afib s/p ablation on eliquis and BB, DVT, CKD, DM, HTN. P/w RLE pain. IMP RLE cellulitis with acute DVT. Consulted for Afib with intermittent mild RVR which responded to cardizem drip. Trop neg BNP 219, baseline Cr. Plan eliquis to pradaxa as per hemonc recs. A: Afib with intermittent RVR RUE cellulitis Acute RUE (SFV and SV) DVT CKD3 P: TTE if EF nl, diltiazem titration for rate 80-110 anticoagulation per hemonc recs Kelby Zhao MD, PhD Assessment and Plan Discussion w patient/family: The assessment and plan as outlined above was discussed with the patient and/or family members who expressed understanding and agreement. All questions were answered. Thank you for involving us in the care of your patient. Please call with any questions. History of Present Illness History of present illness: Ms. Watson is a 63 year old female All Systems Review: The remainder of the systems were reviewed and are negative Physical Examination Vital Signs, Last 4 Hours Temp Pulse Resp BP Pulse Ox 11/04/18 14:55 99.2 F 87 16 99/64 99 Results 11/04/18 01:07 11/04/18 01:07 Lab Results 11/04/18 11/04/18 11/04/18 01:07 01:07 01:07 WBC 12.5 H Hgb 11.2 L Hct 34.1 L Plt Count 140 APTT D-Dimer 429 Sodium 129 L Potassium 3.8 Chloride 96 L Carbon Dioxide 27 BUN 30 H Creatinine 1.48 H Glucose 160 H Calcium 8.7 11/04/18 15:55 WBC Hgb Hct Plt Count APTT 40.9 H D-Dimer Sodium Potassium Chloride Carbon Dioxide BUN Creatinine Glucose Calcium
--- NOTE | 2018-11-04 14:46 | Oncology Inp Progress Note ---
<Malgorzata Gurrola - Last Filed: 11/04/18 15:21> Date of Encounter: 11/04/18 (1) Gout Current Visit: Yes Status: Chronic Qualifiers: Gout site: unspecified site Gout etiology: unspecified cause Chronicity: unspecified Qualified Code(s): M10.9 - Gout, unspecified (2) CKD (chronic kidney disease) stage 3, GFR 30-59 ml/min Current Visit: Yes Status: Chronic (3) Atrial fibrillation Current Visit: Yes Status: Chronic Qualifiers: Atrial fibrillation type: persistent Qualified Code(s): I48.1 - Persistent atrial fibrillation (4) Hypertension Current Visit: Yes Status: Chronic Qualifiers: Hypertension type: essential hypertension Qualified Code(s): I10 - Essential (primary) hypertension (5) Diabetes mellitus Current Visit: Yes Status: Acute Qualifiers: Diabetes mellitus type: type 2 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: without [facility] use Diabetes mellitus complication status: with unspecified complications Qualified Code(s): E11.8 - Type 2 diabetes mellitus with unspecified complications (6) DVT (deep venous thrombosis) Current Visit: Yes Status: Acute Qualifiers: DVT location: lower extremity Affected thrombotic vein of extremity: femoral Chronicity: acute Laterality: right Qualified Code(s): I82.411 - Acute embolism and thrombosis of right femoral vein (7) Cellulitis Current Visit: Yes Status: Acute Qualifiers: Site of cellulitis: extremity Site of cellulitis of extremity: lower extremity Laterality: right Qualified Code(s): L03.115 - Cellulitis of right lower limb (8) Obesity Current Visit: Yes Status: Acute Qualifiers: Obesity type: due to excess calories Obesity classification: adult class 3 (BMI >= 40) Serious obesity comorbidity presence: with serious comorbidity Body mass index: BMI 50.0-59.9 Qualified Code(s): E66.01 - Morbid (severe) obesity due to excess calories; Z68.43 - Body mass index (BMI) 50-59.9, adult (9) Atrial fibrillation with RVR Current Visit: Yes Status: Acute Oncology: Obj Data - Labs CBC & Chem 7: 11/04/18 01:07 11/04/18 01:07 Consult Discharge Plan - Plan Referrals: Rachel Veronica MD [Primary Care Provider] - 11/12/18 10:00 am () <Abdi Graff S - Last Filed: 11/04/18 16:51> Date of Encounter: 11/04/18 Time of Encounter: 16:52 (1) DVT (deep venous thrombosis) Current Visit: Yes Status: Acute Qualifiers: DVT location: lower extremity Affected thrombotic vein of extremity: femoral Chronicity: acute Laterality: right Qualified Code(s): I82.411 - Acute embolism and thrombosis of right femoral vein Oncology: Obj Data - Labs CBC & Chem 7: 11/04/18 01:07 11/04/18 01:07 - Attending Attestation I examined this patient and my medical decision-making was reviewed with the Advanced Practice Nurse. I agree with the documented findings, disposition and treatment plan as described except to the extent set forth below. Recurrent DVT. She had a acute episode of DVT right lower extremity symptomatic with pain and swelling. This has improved since hospitalization on heparin. Recommendation is sutured to Pradaxa 150 mg by mouth twice a day on discharge. She can follow-up locally. Need to watch her creatinine clearance and may need dose reduction of creatinine clearance drops below 30 she also has history of atrial fibrillation <Iveth Knight M - Last Filed: 11/04/18 17:25> Date of Encounter: 11/04/18 Time of Encounter: 11:30 Oncology: Subj Interval history: Kallie is awake and alert with at bedside. She notes that she has a wound on her RLE that is causing her pain. She rates her pain as 8 out 10, but notes that the pain medication is helping. She continues on a Heparin drip for her RLE DVT. Discussed that she is planned to return home with Pradaxa 150 mg PO BID. Discussed that her renal function in borderline at this time, which she verbalizes awareness of her baseline of eGFR of 40. Today, her eGFR is 35 and creatinine 1.48. She notes that her PCP in [place] manages her anticoagulation and monitors her lab results. She declines questions or concerns at this time and notes that she "just wants to be discharged." - Constitutional General appearance: cooperative, morbidly obese, no acute distress - Respiratory Respiratory exam: Present: decreased breath sounds. Absent: rales, respiratory distress, rhonchi, wheezes - Cardiovascular Cardiovascular exam: Present: irregular rhythm Additional comments: HR 80-100, on telemetry - GI/Abdominal GI/Abdominal exam: Present: normal bowel sounds Additional comments: obese - Extremities Exam Extremities exam: Present: joint swelling, normal capillary refill, pedal edema Additional comments: RLE wound covered with bandaid - Psychiatric Psychiatric exam: Present: normal affect, normal mood - Skin Skin exam: Present: erythema Additional comments: BLE erythema and edema Oncology: Obj Data - Labs CBC & Chem 7: 11/04/18 01:07 11/04/18 15:55 Inpatient Charges Provider: Dr. Brenda Graff Follow up - Inpatient: [id number]
[2018-11-04] MEDS: Cefepime HCl 2,000 MG in Water for inj. (sterile) 20 ML 20 ML IVP SCH (16:50)
[2018-11-04] MEDS ORDERED: Perflutren Lipid Microsphere 1.3 ML in 0.9 % Sodium Chloride 8.7 ML IVP ONE (17:54)
[2018-11-05 00:44] LABS: Basophils % 0.3 %; Eosinophils # 0.3 K/mcL (0.0-0.6); Eosinophils % 2.4 %; Hematocrit 33.8 % (35.3-44.9); Hemoglobin 10.8 g/dL (11.5-15.4); Immature Granulocytes % 1.3 % (0-4); Lymphocytes # 1.3 K/mcL (0.6-4.6); Lymphocytes % 12.7 %; Mean Corpuscular Hemoglobin 30.3 pg (28.0-33.3); Mean Corpuscular Volume 94.9 fL (83.0-100.0); Mean Platelet Volume 10.8 fL (9.4-12.4); Monocytes % 9.9 %; Neutrophils # 7.5 K/mcL (1.6-8.9); Platelet Count 149 K/mcL (140-400); Red Blood Count 3.56 M/mcL (3.82-4.97); Red Cell Distribution Width 16.1 % (11.5-14.5); Segmented Neutrophils % 73.4 %
[2018-11-05 01:02] LABS: Calcium 8.6 mg/dL (8.6-10.3)
[2018-11-05] MEDS: *HR* OxyCODONE Immed Rel 5 MG TABLET PO PRN ×2 (05:19→16:00)
[2018-11-05] MEDS: Cefepime HCl 2,000 MG in Water for inj. (sterile) 20 ML 20 ML IVP SCH (05:21)
[2018-11-05] MEDS: Heparin 25,000 UNIT/250 ML D5W 25,000 UNIT/250 ML IV.SOLN IVC SCH ×2 (05:53→17:51)
[2018-11-05] MEDS: Insulin LISPRO 300 UNITS/3 ML VIAL SQ SCH ×4 (07:31→20:51)
[2018-11-05] MEDS: Diltiazem CD (24hr) 180 MG CAPSULE PO SCH (08:38)
[2018-11-05] MEDS: Metoprolol 100 MG TABLET PO SCH ×2 (08:38→20:59)
--- NOTE | 2018-11-05 09:50 | Internal Med Progress Note ---
Hospitalist Progress Note - Encounter Date of Encounter: 11/05/18 Time of Encounter: 09:48 - Subjective Interval History: Patient was seen and examined at bedside currently denies any pain or discomfort I did update patient on treatment plan he verbalized understanding and agreement - Exam Vitals: Temp Pulse Resp BP Pulse Ox 98.6 F 101 13 103/67 98 11/05/18 07:11 11/05/18 07:11 11/05/18 07:11 11/05/18 07:11 11/05/18 07:11 Exam: Vitals: Reviewed General: Morbidly obese, unkempt and odorous. Skin: Warm, dry HEENT: Moist mucous membranes. No conjunctivae pallor. Neck: Short and thick. Chest: Normal breath sounds. Clear to auscultation. Heart: Normal S1 & S2; rhythmic. No rubs or murmurs. Abdomen: soft and non-tender to palpation. No peritoneal reaction. Extremities: Equally edematous legs but with the right leg showing more acute inflammatory signs with posterior erythema and warmth that is exquisitely tender to palpation as well as anterior blister formation that is covered with some serous sanguinous drainage Neurological: Awake, alert and oriented to person, place and time. No focal deficits. Psych: Affect appropriate. - Assessment and Plan (1) Gout Current Visit: Yes Status: Chronic Assessment and Plan: Asymptomatic. Continue allopurinol. (2) CKD (chronic kidney disease) stage 3, GFR 30-59 ml/min Current Visit: Yes Status: Chronic Assessment and Plan: Stable. Avoid nephrotoxic agents. Monitor creatinine closely Renal dose antibiotics (3) Atrial fibrillation Current Visit: Yes Status: Chronic Assessment and Plan: Monitor on telemetry. Continue metoprolol. Anticoagulation as above. -Initiated on oral Cardizem-ray is improved at this time we will continue to monitor closely especially blood pressure Cardiology consult and appreciate recommendations Continue anticoagulation-currently on heparin will transition to a DEXA Cardiac echo Impressions: Technically sub-optimal due to poor echocardiographic windows. Apical windows were not obtained The left ventricle is not well evaluated in this study as there is no apical window. Grossly LVEF appears normal Indeterminate diastolic function. Mild concentric left ventricular hypertrophy. Normal right ventricular structure and function. Severely dilated left atrium. Mild tricuspid regurgitation. Mild pulmonary hypertension.Estimated RVSP is 45 mmHg. (4) Hypertension Current Visit: Yes Status: Chronic Assessment and Plan: BP is a little soft we will hold lisinopril patient initiated on oral Cardizem- Cardizem drip has been discontinue continue with metoprolol (5) Diabetes mellitus Current Visit: Yes Status: Acute Assessment and Plan: Will administer basal insulin and continue with sliding scale regimen while her oral agents will be on hold.-Glucose is stable at this time (6) DVT (deep venous thrombosis) Current Visit: Yes Status: Acute Assessment and Plan: Patient is morbidly obese has had multiple episodes of DVTs and been placed on 3 different anticoagulants. Currently venous duplex does show right superficial femoral vein acute thrombus right great saphenous vein acute thrombus-right leg is edematous with erythema and tenderness to touch. She has been initiated on heparin drip hematology has been consulted recommending her to ask 150 mg twice a day upon discharge (7) Cellulitis Current Visit: Yes Status: Acute Assessment and Plan: Right lower leg continues to be edematous with erythema tender to touch. She does have one open wound which is draining. She did have a fever overnight blood cultures are negative to date. White count is stable at this time continue with vancomycin-we will attempt to obtain wound culture- wound culture does show Pseudomonas will discontinue cefepime and vancomycin and continue with Levaquin which is sensitive Encourage patient to elevate leg cold packs as needed continue with current analgesia (8) Obesity Current Visit: Yes Status: Acute Assessment and Plan: Counseled and educated on therapeutic lifestyle changes for weight loss as it will be of benefit in controlling comorbidities. She will need bariatric evaluation at this point. (9) Atrial fibrillation with RVR Current Visit: Yes Status: Acute Assessment and Plan: Patient had an episode of A. fib RVR placed on Cardizem drip -. Evaluated by cardiology recommending cardiac Cardizem CD 180 mg daily Continue with metoprolol-heart rate has improved rate controlled at 80-100 Currently on heparin drip which we will continue-will be transition to Pradaxa - Time Spent with Patient Total time spent is greater than 50% in coordination of care (as documented) at patient's floor/unit and/or counseling patient: Internal Medicine: Result - Labs CBC & Chem 7: 11/05/18 00:33 11/05/18 00:33 Labs: Short CBC 11/05/18 Range/Units 00:33 WBC 10.3 (4.3-11.1) K/mcL Hgb 10.8 L (11.5-15.4) g/dL Hct 33.8 L (35.3-44.9) % Plt Count 149 (140-400) K/mcL Neutrophils # 7.5 (1.6-8.9) K/mcL BMP 11/04/18 11/05/18 15:55 00:33 Sodium 128 L 129 L Potassium 4.0 Chloride 96 L Carbon Dioxide 24 BUN 36 H Creatinine 1.52 H Glucose 191 H Calcium 8.6 - ABG Interpretation ABG results: PT/INR, D-dimer PT 13.8 Seconds (9.4-12.1) H 11/01/18 22:53 D-Dimer 429 ng/mLFEU (0-500) 11/04/18 01:07 - Impressions Impressions Echocardiogram 11/04/18 07:37 Impressions: Technically sub-optimal due to poor echocardiographic windows. Apical windows were not obtained The left ventricle is not well evaluated in this study as there is no apical window. Grossly LVEF appears normal Indeterminate diastolic function. Mild concentric left ventricular hypertrophy. Normal right ventricular structure and function. Severely dilated left atrium. Mild tricuspid regurgitation. Mild pulmonary hypertension.Estimated RVSP is 45 mmHg. Left Ventricular Wall Motion: Rest Echo Findings The apical inferior, mid inferior, basal inferior, apical anterior, mid anterior, basal anterior, mid inferior septal, apical lateral and mid anterior septal cano were not visualized. All other wall segments showed normal motion. Findings: Study Quality * Technically sub-optimal due to poor echocardiographic windows. No apical windows were obtained ECG Findings * Atrial fibrillation. Left Ventricle * The left ventricle is not well evaluated in this study as there is no apical window. Grossly LVEF appears normal * Unable to evaluate segmental wall motion due to technical quality. * Indeterminate diastolic function. * Mild concentric left ventricular hypertrophy. Right Ventricle * Normal right ventricular structure and function. Left Atrium * Severely dilated left atrium. Right Atrium * Normal right atrial size. Interatrial Septum * Aneurysmal interatrial septal. Aortic Valve * Trileaflet aortic valve. * No aortic regurgitation. * No aortic stenosis. * Normal aortic valve structure. Mitral Valve * Mitral valve not well visualized. * No mitral regurgitation. * No mitral stenosis. Tricuspid Valve * Mild tricuspid regurgitation. * Mild pulmonary hypertension.Estimated RVSP is 45 mmHg. * Estimated RVSP is 45 mmHg. * Estimated RA pressure is 10 mmHg. * No tricuspid stenosis. * Normal tricuspid valve structure. Pulmonic Valve * Pulmonic valve not well visualized. Aorta * Normally sized aortic root. Pericardium * The pericardium appears normal. IVC * The IVC is dilated. Pulmonary Artery * Pulmonary artery not well visualized. Consult Discharge Plan - Plan Referrals: Rachel Veronica MD [Primary Care Provider] - 11/12/18 10:00 am () (1) Gout Qualifiers: Gout site: unspecified site Gout etiology: unspecified cause Chronicity: unspecified Qualified Code(s): M10.9 - Gout, unspecified (3) Atrial fibrillation Qualifiers: Atrial fibrillation type: persistent Qualified Code(s): I48.1 - Persistent atrial fibrillation (4) Hypertension Qualifiers: Hypertension type: essential hypertension Qualified Code(s): I10 - Essential (primary) hypertension (5) Diabetes mellitus Qualifiers: Diabetes mellitus type: type 2 Diabetes mellitus skilled nursing insulin use: without skilled nursing use Diabetes mellitus complication status: with unspecified complications Qualified Code(s): E11.8 - Type 2 diabetes mellitus with unspeci fied complications (6) DVT (deep venous thrombosis) Qualifiers: DVT location: lower extremity Affected thrombotic vein of extremity: femoral Chronicity: acute Laterality: right Qualified Code(s): I82.411 - Acute embolism and thrombosis of right femoral vein (7) Cellulitis Qualifiers: Site of cellulitis: extremity Site of cellulitis of extremity: lower extremity Laterality: right Qualified Code(s): L03.115 - Cellulitis of right lower limb (8) Obesity Qualifiers: Obesity type: due to excess calories Obesity classification: adult class 3 (BMI >= 40) Serious obesity comorbidity presence: with serious comorbidity Body mass index: BMI 50.0-59.9 Qualified Code(s): E66.01 - Morbid (severe) obesity due to excess calories; Z68.43 - Body mass index (BMI) 50-59.9, adult
[2018-11-05] MEDS: Levofloxacin 750 MG/150 ML 750 MG/150 ML BAG IVPB SCH (12:13)
[2018-11-06] MEDS: Melatonin 3 MG TABLET PO PRN ×2 (02:23→20:33)
[2018-11-06] MEDS: Heparin 25,000 UNIT/250 ML D5W 25,000 UNIT/250 ML IV.SOLN IVC SCH (03:01)
[2018-11-06 04:09] LABS: Basophils # 0.1 K/mcL (0.0-0.2); Basophils % 0.6 %; Eosinophils # 0.2 K/mcL (0.0-0.6); Eosinophils % 2.1 %; Hematocrit 33.5 % (35.3-44.9); Hemoglobin 10.9 g/dL (11.5-15.4); Immature Granulocytes % 2.1 % (0-4); Lymphocytes # 1.4 K/mcL (0.6-4.6); Lymphocytes % 16.8 %; Mean Corpuscular HGB Conc 32.5 g/dL (31.6-35.5); Mean Corpuscular Hemoglobin 30.7 pg (28.0-33.3); Mean Corpuscular Volume 94.4 fL (83.0-100.0); Mean Platelet Volume 10.9 fL (9.4-12.4); Monocytes # 0.9 K/mcL (0.0-1.3); Neutrophils # 5.8 K/mcL (1.6-8.9); Platelet Count 145 K/mcL (140-400); Red Blood Count 3.55 M/mcL (3.82-4.97); Red Cell Distribution Width 15.8 % (11.5-14.5); Segmented Neutrophils % 67.4 %
[2018-11-06 04:21] LABS: Calcium 8.7 mg/dL (8.6-10.3); Potassium 4.8 mEq/L (3.5-5.1)
[2018-11-06] MEDS: *HR* OxyCODONE Immed Rel 5 MG TABLET PO PRN (05:38)
[2018-11-06] MEDS: Insulin LISPRO 300 UNITS/3 ML VIAL SQ SCH ×4 (07:59→20:24)
[2018-11-06] MEDS: Levofloxacin 750 MG/150 ML 750 MG/150 ML BAG IVPB SCH (08:02)
[2018-11-06] MEDS: Diltiazem CD (24hr) 180 MG CAPSULE PO SCH (08:02)
[2018-11-06] MEDS: Metoprolol 100 MG TABLET PO SCH ×2 (08:02→20:32)
[2018-11-06] MEDS: *HR* Dabigatran 150 MG CAPSULE PO SCH ×2 (09:18→20:33)
--- NOTE | 2018-11-06 14:24 | Internal Med Progress Note ---
Hospitalist Progress Note - Encounter Date of Encounter: 11/06/18 Time of Encounter: 14:14 - Subjective Interval History: Pt seen and examined in the room. She reported leg pain has improved. wanted to stay for couple more day to ensure everything is ok before leaving. No sob, chest pain. - Exam Vitals: Temp Pulse Resp BP Pulse Ox 98 F 90 17 101/67 98 11/06/18 12:19 11/06/18 12:19 11/06/18 12:19 11/06/18 12:19 11/06/18 12:19 Exam: Vitals: Reviewed General: Morbidly obese, unkempt and odorous. Skin: Warm, dry HEENT: Moist mucous membranes. No conjunctivae pallor. Neck: Short and thick. Chest: Normal breath sounds. Clear to auscultation. Heart: Normal S1 & S2; rhythmic. No rubs or murmurs. Abdomen: soft and non-tender to palpation. No peritoneal reaction. Extremities: Equally edematous legs but with the right leg showing more acute inflammatory signs with posterior erythema and warmth that is exquisitely tender to palpation as well as anterior blister formation that is covered with some serous sanguinous drainage Neurological: Awake, alert and oriented to person, place and time. No focal deficits. Psych: Affect appropriate. - Assessment and Plan (1) DVT (deep venous thrombosis) Current Visit: Yes Status: Acute Assessment and Plan: Patient is morbidly obese has had multiple episodes of DVTs and been placed on 3 different anticoagulants. Currently venous duplex does show right superficial femoral vein acute thrombus right great saphenous vein acute thrombus-right leg is edematous with erythema and tenderness to touch. She has been initiated on heparin drip hematology has been consulted recommending her to ask 150 mg twice a day. Heparin gtt dc'ed and Pradaxa started today. PT/OT recommended SNF, will dc once setup. (2) Gout Current Visit: No Status: Chronic Assessment and Plan: Asymptomatic. Continue allopurinol. (3) CKD (chronic kidney disease) stage 3, GFR 30-59 ml/min Current Visit: No Status: Chronic Assessment and Plan: Stable. Avoid nephrotoxic agents. Monitor creatinine closely Renal dose antibiotics (4) Atrial fibrillation Current Visit: No Status: Chronic Assessment and Plan: rate controlled. Heparin gtt changed to Pradaxa per hematology. (5) Hypertension Current Visit: No Status: Chronic Assessment and Plan: stable continue current treatment. (6) Diabetes mellitus Current Visit: No Status: Acute Assessment and Plan: Will administer basal insulin and continue with sliding scale regimen while her oral agents will be on hold.-Glucose is stable at this time (7) Cellulitis Current Visit: Yes Status: Acute Assessment and Plan: wound cx positive for psudomonas, sensitive for levaquin. IV abx changed to oral as afebrile and normal WBC. possible dc in am. (8) Obesity Current Visit: Yes Status: Acute Assessment and Plan: Counseled and educated on therapeutic lifestyle changes for weight loss as it will be of benefit in controlling comorbidities. - Time Spent with Patient Total time spent is greater than 50% in coordination of care (as documented) at patient's floor/unit and/or counseling patient: Greater than 35 minutes Plan of Care Discussed with: patient Internal Medicine: Result - Labs CBC & Chem 7: 11/06/18 03:21 11/06/18 03:21 Labs: Short CBC 11/06/18 Range/Units 03:21 WBC 8.6 (4.3-11.1) K/mcL Hgb 10.9 L (11.5-15.4) g/dL Hct 33.5 L (35.3-44.9) % Plt Count 145 (140-400) K/mcL Neutrophils # 5.8 (1.6-8.9) K/mcL BMP 11/06/18 03:21 Sodium 128 L Potassium 4.8 Chloride 97 L Carbon Dioxide 22 L BUN 36 H Creatinine 1.49 H Glucose 161 H Calcium 8.7 - ABG Interpretation ABG results: PT/INR, D-dimer PT 13.8 Seconds (9.4-12.1) H 11/01/18 22:53 D-Dimer 429 ng/mLFEU (0-500) 11/04/18 01:07 Consult Discharge Plan - Plan Referrals: Rachel Veronica MD [Primary Care Provider] - 11/12/18 10:00 am () Abdi Graff MD [Partnered Physician] - 11/18/18 9:00 am ___ (1) DVT (deep venous thrombosis) Qualifiers: DVT location: lower extremity Affected thrombotic vein of extremity: femoral Chronicity: acute Laterality: right Qualified Code(s): I82.411 - Acute embolism and thrombosis of right femoral vein (2) Gout Qualifiers: Gout site: unspecified site Gout etiology: unspecified cause Chronicity: unspecified Qualified Code(s): M10.9 - Gout, unspecified (4) Atrial fibrillation Qualifiers: Atrial fibrillation type: persistent Qualified Code(s): I48.1 - Persistent atrial fibrillation (5) Hypertension Qualifiers: Hypertension type: essential hypertension Qualified Code(s): I10 - Essential (primary) hypertension (6) Diabetes mellitus Qualifiers: Diabetes mellitus type: type 2 Diabetes mellitus mcfp insulin use: without sql etl developer use Diabetes mellitus complication status: with unspecified complications Qualified Code(s): E11.8 - Type 2 diabetes mellitus with unspecified complications (7) Cellulitis Qualifiers: Site of cellulitis: extremity Site of cellulitis of extremity: lower extremity Laterality: right Qualified Code(s): L03.115 - Cellulitis of right lower limb (8) Obesity Qualifiers: Obesity type: due to excess calories Obesity classification: adult class 3 (BMI >= 40) Serious obesity comorbidity presence: with serious comorbidity Body mass index: BMI 50.0-59.9 Qualified Code(s): E66.01 - Morbid (severe) obesity due to excess calories; Z68.43 - Body mass index (BMI) 50-59.9, adult
[2018-11-07 04:39] LABS: Basophils # 0.1 K/mcL (0.0-0.2); Basophils % 0.7 %; Eosinophils # 0.1 K/mcL (0.0-0.6); Eosinophils % 1.8 %; Hematocrit 33.7 % (35.3-44.9); Hemoglobin 10.8 g/dL (11.5-15.4); Immature Granulocytes % 3.3 % (0-4); Lymphocytes # 1.1 K/mcL (0.6-4.6); Lymphocytes % 14.8 %; Mean Corpuscular Hemoglobin 30.1 pg (28.0-33.3); Mean Corpuscular Volume 93.9 fL (83.0-100.0); Mean Platelet Volume 10.2 fL (9.4-12.4); Monocytes # 0.8 K/mcL (0.0-1.3); Monocytes % 9.9 %; Neutrophils # 5.3 K/mcL (1.6-8.9); Platelet Count 159 K/mcL (140-400); Red Blood Count 3.59 M/mcL (3.82-4.97); Red Cell Distribution Width 15.7 % (11.5-14.5); Segmented Neutrophils % 69.5 %
[2018-11-07 04:57] LABS: Calcium 8.9 mg/dL (8.6-10.3); Potassium 4.3 mEq/L (3.5-5.1)
[2018-11-07] MEDS ORDERED: levoFLOXacin 750 MG TABLET PO SCH (09:00)
[2018-11-07] MEDS: Diltiazem CD (24hr) 180 MG CAPSULE PO SCH (09:23)
[2018-11-07] MEDS: *HR* Dabigatran 150 MG CAPSULE PO SCH (09:23)
[2018-11-07] MEDS: Insulin LISPRO 300 UNITS/3 ML VIAL SQ SCH ×2 (09:23→12:12)
[2018-11-07] MEDS: Metoprolol 100 MG TABLET PO SCH (09:23)
[2018-11-07] MEDS: traMADol 50 MG TABLET PO PRN (09:23)
[2018-11-07 11:26] VITALS: BP 112/74
--- NOTE | 2018-11-07 14:33 | Physician Discharge Referral ---
ExtendedCare Referral Info Transfer To: ECF Provider in Charge after Transfer: Other Institutional Level of Care: Skilled - Diagnosis (1) DVT (deep venous thrombosis) Priority: Primary Status: Acute (2) Gout Priority: Secondary Status: Chronic (3) CKD (chronic kidney disease) stage 3, GFR 30-59 ml/min Priority: Secondary Status: Chronic (4) Atrial fibrillation Priority: Primary Status: Chronic (5) Hypertension Priority: Secondary Status: Chronic (6) Diabetes mellitus Priority: Secondary Status: Acute (7) Cellulitis Priority: Primary Status: Acute (8) Obesity Priority: Secondary Status: Acute Prognosis: Fair Aware of Diagnosis: Patient Aware of Prognosis: Patient - Transfer Medications Home Medications: Lovastatin [Mevacor] 40 mg PO HS 04/20/15 [History] Apixaban [Eliquis] 5 mg PO BID 01/28/18 [History] Allopurinol [Zyloprim] 300 mg PO DAILY 08/09/18 [History] Ergocalciferol (VITAMIN D2) [Vitamin D2] 50,000 unit PO TH 08/09/18 [History] hydrOXYzine HCl [Hydroxyzine HCl] 25 mg PO BID PRN 08/09/18 [History] Doxycycline 100 mg PO BID 10 Days #20 capsule 11/01/18 [Rx] Mupirocin [Bactroban Oint] 1 appl TP BID 7 Days #1 tube 11/01/18 [Rx] Furosemide [Lasix] 40 mg PO DAILY 11/04/18 [History] Lisinopril [Zestril] 40 mg PO DAILY 11/04/18 [History] Metoprolol Tartrate 100 mg PO BID 11/04/18 [History] Potassium Chloride 20 meq PO DAILY 11/04/18 [History] Tramadol HCl [Ultram] 50 mg PO Q4H PRN 11/04/18 [History] glipiZIDE [Glipizide] 10 mg PO BID 11/04/18 [History] Allergies/Adverse Reactions: Allergy/AdvReac Type Severity Reaction Status Date / Time Warfarin [From Coumadin] Allergy Hives Verified 11/04/18 09:33 - Respiratory Orders Smoking Cessation: Smoking cessation has been advised. For more information, call the [place] Tobacco Quit Line at 2-576-IYBV-NOW. - Advance Directives Code Status: Full Code CERTIFICATION: I certify that the transfer of the above named patient to an Extended Care Facility is necessary for the continuing treatment of the diagnosis listed. The above information is true and accurate reflection of patient's current condition. Confidential - Redisclosure prohibited without a patient's written consent.
--- NOTE | 2018-11-07 14:39 | Discharge Summary ---
- NOTES TO OUTPATIENT PROVIDER Notes to Outpatient Provider: f/u with PCP as needed. Date of Encounter: 11/07/18 Time of Encounter: 14:33 - Discharge Diagnosis (1) DVT (deep venous thrombosis) Priority: Primary Status: Acute Qualifiers: DVT location: lower extremity Affected thrombotic vein of extremity: femoral Chronicity: acute Laterality: right Qualified Code(s): I82.411 - Acute embolism and thrombosis of right femoral vein (2) Gout Priority: Secondary Status: Chronic Qualifiers: Gout site: unspecified site Gout etiology: unspecified cause Chronicity: unspecified Qualified Code(s): M10.9 - Gout, unspecified (3) CKD (chronic kidney disease) stage 3, GFR 30-59 ml/min Priority: Secondary Status: Chronic (4) Atrial fibrillation Priority: Primary Status: Chronic Qualifiers: Atrial fibrillation type: persistent Qualified Code(s): I48.1 - Persistent atrial fibrillation (5) Hypertension Priority: Secondary Status: Chronic Qualifiers: Hypertension type: essential hypertension Qualified Code(s): I10 - Essential (primary) hypertension (6) Diabetes mellitus Priority: Secondary Status: Chronic Qualifiers: Diabetes mellitus type: type 2 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 insulin use: without termite renewal inspector use Diabetes mellitus complication status: with unspecified complications Qualified Code(s): E11.8 - Type 2 diabetes mellitus with unspecified complications (7) Cellulitis Priority: Primary Status: Acute Qualifiers: Site of cellulitis: extremity Site of cellulitis of extremity: lower extremity Laterality: right Qualified Code(s): L03.115 - Cellulitis of right lower limb (8) Obesity Priority: Secondary Status: Chronic Qualifiers: Obesity type: due to excess calories Obesity classification: adult class 3 (BMI >= 40) Serious obesity comorbidity presence: with serious comorbidity Body mass index: BMI 50.0-59.9 Qualified Code(s): E66.01 - Morbid (severe) obesity due to excess calories; Z68.43 - Body mass index (BMI) 50-59.9, adult Hospital course: Kallie Watson is a morbidly obese 63 year old woman with diabetes, atrial fibrillation and DVT previously on warfarin then dabigatran and now on apixaban. She comes to the ER complaining of pain and swelling in her right leg for the past 2 days and worsening. She also developed a blister on her martin and was placed on antibiotics at urgent care. Her inflammatory signs progressed on the calf area and today in the ER was found to have an acute DVT in the distal SFV and GSV. She is admitted for further care. Hematology was consulted and Eliquis was changed to Pradaxa. During the hospital stay she developed afib with RVR, HR was controlled with oral metoprolol and cardizem. A cellulitis was found on the right leg, wound cx grew pseudomonas, after 3 days of IV Levaquin, abx changed to oral. PT/OT recommended SNF for short-term rehab. Pt is discharged today, instructed to continue take oral abx for 14 more day. Continue Pradaxa and cardizem for DVT and AFIb. f/u with PCP as needed. Discharge discussed with: patient Time spent discussing smoking cessation with patient: more than 10 minutes - Time Spent with Patient Total time spent providing and/or coordinating discharge services: Time spent: Greater than 30 minutes - Discharge Medications Prescriptions: New Dabigatran [Pradaxa] 150 mg PO BID #30 capsule Diltiazem CD (24hr) [Cardizem CD] 180 mg PO DAILY #30 cap.er.24h levoFLOXacin [Levaquin] 750 mg PO DAILY #14 tablet Continue Furosemide [Lasix] 40 mg PO DAILY Lisinopril [Zestril] 40 mg PO DAILY Metoprolol Tartrate 100 mg PO BID Potassium Chloride 20 meq PO DAILY glipiZIDE [Glipizide] 10 mg PO BID Tramadol HCl [Ultram] 50 mg PO Q4H PRN 2 Days #10 tablet PRN Reason: Pain Lovastatin [Mevacor] 40 mg PO HS Ergocalciferol (VITAMIN D2) [Vitamin D2] 50,000 unit PO TH hydrOXYzine HCl [Hydroxyzine HCl] 25 mg PO BID PRN PRN Reason: Anxiety Allopurinol [Zyloprim] 300 mg PO DAILY Discontinued Doxycycline 100 mg PO BID 10 Days #20 capsule Mupirocin [Bactroban Oint] 1 appl TP BID 7 Days #1 tube Apixaban [Eliquis] 5 mg PO BID Home Medications: Lovastatin [Mevacor] 40 mg PO HS 04/20/15 [History] Allopurinol [Zyloprim] 300 mg PO DAILY 08/09/18 [History] Ergocalciferol (VITAMIN D2) [Vitamin D2] 50,000 unit PO TH 08/09/18 [History] hydrOXYzine HCl [Hydroxyzine HCl] 25 mg PO BID PRN 08/09/18 [History] Furosemide [Lasix] 40 mg PO DAILY 11/04/18 [History] Lisinopril [Zestril] 40 mg PO DAILY 11/04/18 [History] Metoprolol Tartrate 100 mg PO BID 11/04/18 [History] Potassium Chloride 20 meq PO DAILY 11/04/18 [History] glipiZIDE [Glipizide] 10 mg PO BID 11/04/18 [History] Dabigatran [Pradaxa] 150 mg PO BID #30 capsule 11/07/18 [Rx] Diltiazem CD (24hr) [Cardizem CD] 180 mg PO DAILY #30 cap.er.24h 11/07/18 [Rx] Tramadol HCl [Ultram] 50 mg PO Q4H PRN 2 Days #10 tab 11/07/18 [Rx] Tramadol HCl [Ultram] 50 mg PO Q4H PRN 2 Days #10 tablet 11/07/18 [Rx] levoFLOXacin [Levaquin] 750 mg PO DAILY #14 tablet 11/07/18 [Rx] Allergies/Adverse Reactions: Allergy/AdvReac Type Severity Reaction Status Date / Time Warfarin [From Coumadin] Allergy Hives Verified 11/04/18 09:33 Date of admission: 11/04/18 15:26 Primary care physician: Rachel Veronica Consults: 11/02/18 08:43 Consult to Oncology [CONS] Routine Consulting Provider: [facility] [place] Reason for Consult: DVT failed anticoagualtion outpatient Time Notified: 08:46 Call Completed: Yes 11/04/18 07:32 Consult to Invasive Line Access Team [CONS] Routine Reason for Consult: unable to obtain PIV over night. Several nurses tried. Patient has heparin and vanc ordered wich is not compatable. May need cardizem started, which is not compatable either. Patient may need two powerglides. One PIV is working, but the PIV's have been going bad quickly. Line Type: EPIV 11/04/18 10:16 Consult to Cardiology [CONS] Routine Comment: Consulting Provider: [facility] [place] Reason for Consult: afib Time Notified: 10:16 Call Completed: Yes 11/05/18 19:25 Consult to Physical Therapy [CONS] Routine Comment: Evaluate, develop and implement POC Reason for Consult: Patient is obese. 2-3 person assist. DVT RLE. May needs placed. Does patient have active BEDREST order?: No Is patient medically & hemodynamically stable?: Yes 11/05/18 19:26 Consult to Occupational Therapy [CONS] Routine Comment: Evaluate, develop and implement POC Reason for Consult: Patient is obese. 2-3 person assist. DVT RLE. May needs placed. Does patient have active BEDREST order?: No Is patient medically & hemodynamically stable?: Yes 11/06/18 08:33 Consult to Customer Marketing Assistant [CONS] Routine Reason for SW Consult: PATIENT WOULD LIKE REFERRAL TO BE MADE TO [facility] FOR SHORT TERM REHAB Anticipated date of discharge: 11/07/18 - Constitutional Vitals: Temp Pulse Resp BP Pulse Ox 97.9 F 86 18 112/74 97 11/07/18 11:25 11/07/18 11:25 11/07/18 11:25 11/07/18 11:25 11/07/18 11:25 General appearance: Present: A&O X 3 Exam: Vitals: Reviewed General: Morbidly obese, unkempt and odorous. Skin: Warm, dry HEENT: Moist mucous membranes. No conjunctivae pallor. Neck: Short and thick. Chest: Normal breath sounds. Clear to auscultation. Heart: Normal S1 & S2; rhythmic. No rubs or murmurs. Abdomen: soft and non-tender to palpation. No peritoneal reaction. Extremities: Equally edematous legs but with the right leg showing more acute inflammatory signs with posterior erythema and warmth that is exquisitely tender to palpation as well as anterior blister formation that is covered with some serous sanguinous drainage Neurological: Awake, alert and oriented to person, place and time. No focal deficits. Psych: Affect appropriate. - Patient Status Disposition: Transfer SNF Condition: Good Functional capacity at discharge: uses cane/walker Overall status at discharge: patient is progressing back to baseline - Discharge Instructions Instructions: Cellulitis (DC), Deep Venous Thrombosis (DC) Follow Up With: Rachel Veronica MD [Primary Care Provider] - 11/12/18 10:00 am () Abdi Graff MD [Partnered Physician] - 11/18/18 9:00 am - Diet and Activity Activity: ambulate only with your walker Diet: diabetic diet
== END 2018-11-07 15:48 | DRG 603 ==
LOC: EMEROOARM 20:21 → 3BNU 20:21
PROVIDERS: ADMIT Internal Medicine; ATTEND Internal Medicine

== ENCOUNTER 2019-02-19 08:20 | Inpatient (IN) ==
[2019-02-19] MEDS ORDERED: Naloxone 0.4 MG/ML INJ IVP PRN (09:48)
[2019-02-19] MEDS ORDERED: Ondansetron 4 MG/2 ML VIAL IVP PRN (09:48)
[2019-02-19] MEDS ORDERED: *HR* OxyCODONE Immed Rel 5 MG TABLET PO PRN (09:48)
[2019-02-19] MEDS ORDERED: *HR* HYDROcodone/Acet 5/325 mg TABLET PO PRN (09:48)
[2019-02-19] MEDS ORDERED: Dextrose Gel 15 GM/37.5 ML TUBE PO PRN ×2 (09:58)
[2019-02-19] MEDS ORDERED: *HR* Dextrose 50 % in Water (Syg) 50 ML SYRINGE IVP PRN (09:58)
[2019-02-19] MEDS ORDERED: D5% in Water 1,000 ML IVC PRN (09:58)
[2019-02-19] MEDS ORDERED: 0.9 % Sodium Chloride 1,000 ML IVC SCH (10:00)
[2019-02-19 11:13] LABS: Basophils % 0.4 %; Eosinophils # 0.1 K/mcL (0.0-0.6); Eosinophils % 0.9 %; Hematocrit 31.4 % (35.3-44.9); Hemoglobin 9.6 g/dL (11.5-15.4); Immature Granulocytes % 0.4 % (0-4); Lymphocytes # 1.3 K/mcL (0.6-4.6); Lymphocytes % 18.7 %; Mean Corpuscular HGB Conc 30.6 g/dL (31.6-35.5); Mean Corpuscular Hemoglobin 30.4 pg (28.0-33.3); Mean Corpuscular Volume 99.4 fL (83.0-100.0); Mean Platelet Volume 9.6 fL (9.4-12.4); Monocytes # 0.5 K/mcL (0.0-1.3); Monocytes % 7.3 %; Platelet Count 157 K/mcL (140-400); Red Blood Count 3.16 M/mcL (3.82-4.97); Red Cell Distribution Width 17.2 % (11.5-14.5); Segmented Neutrophils % 72.3 %; White Blood Count 6.9 K/mcL (4.3-11.1)
[2019-02-19 11:30] LABS: Calcium 8.9 mg/dL (8.6-10.3)
[2019-02-19 11:31] LABS: Albumin 3.1 g/dL (3.5-5.7); Albumin/Globulin Ratio 1.2 (1.1-2.2); Bilirubin,Direct 0.2 mg/dL (0.0-0.2); Bilirubin,Indirect 0.6 mg/dL (0.0-1.2); Bilirubin,Total 0.8 mg/dL (0.3-1.0); Globulin 2.5 g/dL (2.4-3.5); Magnesium 1.9 mg/dL (1.6-2.6); Phosphorous 5.3 mg/dL (2.7-4.5); Total Protein 5.6 g/dL (6.4-8.9)
[2019-02-19 11:46] LABS: Thyroid Stimulating Hormone 2.784 mcIU/mL (0.340-5.600)
[2019-02-19] MEDS: Insulin LISPRO 300 UNITS/3 ML VIAL SQ SCH ×3 (12:19→21:51)
[2019-02-19] MEDS: Metoprolol 100 MG TABLET PO SCH (21:51)
[2019-02-19] MEDS: *HR* Dabigatran 75 MG CAPSULE PO SCH (21:53)
[2019-02-19] MEDS: Acetaminophen 325 MG TABLET PO PRN (22:03)
[2019-02-20 01:11] LABS: Creatinine,Urine 169 mg/dL; Microalbum/Creatinine Ratio,Ur 93 mcg/mg (Less than 30); Microalbumin,Urine 158 mg/L
[2019-02-20 03:41] LABS: Basophils % 0.5 %; Eosinophils # 0.1 K/mcL (0.0-0.6); Eosinophils % 1.3 %; Hemoglobin 9.5 g/dL (11.5-15.4); Immature Granulocytes % 0.2 % (0-4); Lymphocytes # 1.4 K/mcL (0.6-4.6); Mean Corpuscular HGB Conc 30.6 g/dL (31.6-35.5); Mean Corpuscular Hemoglobin 30.2 pg (28.0-33.3); Mean Corpuscular Volume 98.4 fL (83.0-100.0); Mean Platelet Volume 9.4 fL (9.4-12.4); Monocytes # 0.5 K/mcL (0.0-1.3); Monocytes % 7.9 %; Neutrophils # 4.1 K/mcL (1.6-8.9); Platelet Count 153 K/mcL (140-400); Red Blood Count 3.15 M/mcL (3.82-4.97); Red Cell Distribution Width 17.3 % (11.5-14.5); Segmented Neutrophils % 67.1 %; White Blood Count 6.1 K/mcL (4.3-11.1)
[2019-02-20 03:58] LABS: Potassium 4.8 mEq/L (3.5-5.1)
[2019-02-20] MEDS: Insulin LISPRO 300 UNITS/3 ML VIAL SQ SCH ×4 (08:30→21:52)
[2019-02-20] MEDS: *HR* Dabigatran 75 MG CAPSULE PO SCH ×2 (08:37→21:51)
[2019-02-20] MEDS: Metoprolol 100 MG TABLET PO SCH ×2 (08:37→21:51)
[2019-02-20] MEDS: Acetaminophen 325 MG TABLET PO PRN (09:39)
[2019-02-20] MEDS: Nystatin POWDER 30 GM BOTTLE TP SCH (21:52)
[2019-02-21] MEDS: Acetaminophen 325 MG TABLET PO PRN (02:16)
[2019-02-21 03:27] LABS: Basophils % 0.6 %; Eosinophils # 0.1 K/mcL (0.0-0.6); Eosinophils % 1.1 %; Hematocrit 32.6 % (35.3-44.9); Hemoglobin 9.9 g/dL (11.5-15.4); Immature Granulocytes % 0.5 % (0-4); Lymphocytes # 1.4 K/mcL (0.6-4.6); Lymphocytes % 20.8 %; Mean Corpuscular HGB Conc 30.4 g/dL (31.6-35.5); Mean Corpuscular Hemoglobin 29.8 pg (28.0-33.3); Mean Corpuscular Volume 98.2 fL (83.0-100.0); Mean Platelet Volume 9.4 fL (9.4-12.4); Monocytes # 0.4 K/mcL (0.0-1.3); Neutrophils # 4.6 K/mcL (1.6-8.9); Platelet Count 154 K/mcL (140-400); Red Blood Count 3.32 M/mcL (3.82-4.97); Red Cell Distribution Width 17.2 % (11.5-14.5); White Blood Count 6.5 K/mcL (4.3-11.1)
[2019-02-21 03:41] LABS: Potassium 4.4 mEq/L (3.5-5.1)
[2019-02-21] MEDS: Insulin LISPRO 300 UNITS/3 ML VIAL SQ SCH ×2 (08:14→12:22)
[2019-02-21 09:12] VITALS: BP 120/87
[2019-02-21] MEDS: Metoprolol 100 MG TABLET PO SCH (09:13)
[2019-02-21] MEDS: *HR* Dabigatran 75 MG CAPSULE PO SCH (09:13)
[2019-02-21] MEDS: Nystatin POWDER 30 GM BOTTLE TP SCH (09:19)
[2019-02-23 13:06] LABS: O-desmethyltramadol urine qnt <25 ng/mL; Tramadol urine quant <25 ng/mL
== END 2019-02-21 18:03 | disposition home or self-care (01) | DRG 683 ==
LOC: 2NENU → SUATTDRO 14:50
PROVIDERS: ADMIT Student in an Organized Health Care Education/Training Program; ATTEND Internal Medicine